=== PATIENT | male | born 1955 | race Caucasian/White ===

== ENCOUNTER 2017-09-28 08:12 | Day surgery (SDC) | payer MEDICARE ==
[~2017-09-28] VITALS: Ht 188 cm; Wt 90.3 kg
[~2017-09-28 08:12] MED LIST: ALBU3IS INH; ALBU90OI6 INH; BENADRYL25 MG PO; BUPR150ER PO; BUSP15 PO; BUTRANS1 EAC1 TD; Bupropion Xl150 MG PO; CLON1 PO; CYCL10 PO; DEXA1; DICLOFENAC SOD100 G1; DICLOFENAC SOD100 G1 TOP; Depo-Testos200 MG/ML IM; ERYT.5TO BOTHEYES; FAMVIR GT; FEXPSEER PO; HYDMOR2 PO; HYDROCODON-ACE1 EAC3 PO; Hydrocodone-Ap1 EA23 PO; KETO10 PO; LIDO5TP TOP; LOPE2C PO; MECL25 PO; MONT10T PO; NEFA50 PO; ONDA4ODT; Omeprazole20 M1 PO; PROLIA60 MG/1 ML SC; PROM25 PO; QVAR7.3 G1 IH; Sudogest60 MG PO; TRAZ100 PO; Ventolin Soln3 ML INH
[2017-09-28] MEDS ORDERED: DULERA 100 MCG/13 GM (08:55)
[2018-09-06] MEDS ORDERED: TIZANIDINE HCL2 MG PO (18:57)
[2018-09-06] MEDS ORDERED: ALENDRONATE (18:59)
[2018-09-09] MEDS ORDERED: CIPR500 PO (03:49)
[2018-09-09] MEDS ORDERED: Bactrim Ds Tab1 EACH PO (05:51)
== END 2017-09-28 14:43 | disposition home or self-care (01) ==
LOC: ORSCSDS 08:12
PROVIDERS: Urology
PROC: 0V508ZZ Destruction of Prostate, Via Natural or Artificial Opening Endoscopic (ICD-10-PCS; principal; 2017-09-28 09:45)
DX: N40.1 Benign prostatic hyperplasia with lower urinary tract symptoms (principal); R33.9 Retention of urine, unspecified; E78.00 Pure hypercholesterolemia, unspecified; J45.909 Unspecified asthma, uncomplicated; F41.8 Other specified anxiety disorders; Z79.899 Other long term (current) drug therapy
CPT/HCPCS: J0744; J2250; J3010; J7120

== ENCOUNTER → 2018-03-02 | Outpatient (CLI) | payer MEDICARE ==
[~2018-03-02] MED LIST changes: +DULERA 100 MCG/13 GM
== END | disposition home or self-care (01) ==
LOC: LAB 15:30 → LAB SHORT 15:30
DX: R30.0 Dysuria (principal)
CPT/HCPCS: 87086

== ENCOUNTER 2018-03-21 17:23 | Observation (INO) | payer MEDICARE ==
[~2018-03-21] VITALS: Ht 188 cm; Wt 93.0 kg
[2018-03-21 18:31] LABS: Source, Urine Clean Catch
[2018-03-21 18:33] LABS: Bilirubin, Urine Neg (Neg); Blood, Urine 1+ (Neg); Glucose Qualitative, Urine Neg (Neg); Ketones, Urine Neg (Neg); Leukocyte Esterase, Urine 2+ (Neg); Nitrite, Urine Neg (Neg); Protein, Urine Neg (Neg); Urobilinogen, Urine NORM (Normal); pH, Urine 6.5 (5.0-8.0)
[2018-03-21 18:45] LABS: Appearance, Urine Clear (Clear); Color, Urine Yellow (P-Yellow)
[2018-03-21 18:46] LABS: Bacteria Not Seen /hpf; Red Blood Cells, Urine 0-2 /hpf (0-2); Squamous Epithelial Cells Not Seen /hpf (Few)
[2018-03-21 18:53] LABS: U Amphetamine Screen Not Detected; U Barbituate Screen Not Detected; U Benzodiazapine Screen Not Detected; U Buprenorphine Screen Not Detected; U Cannabinoids Screen Not Detected; U Cocaine Screen Not Detected; U Methadone Screen Not Detected; U Methamphetamine Screen Not Detected; U Opiates Screen Not Detected; U Oxycodone Screen Not Detected; U Phencyclidine Screen Not Detected; U Propoxyphene Screen Not Detected
[2018-03-21 18:57] LABS: BASOPHILS ABSOLUTE AUTO 0.04 K/mm3 (0.00-0.23); BASOPHILS PERCENT AUTO 0 % (0-2); EOSINOPHILS ABSOLUTE AUTO 0.05 K/mm3 (0.00-0.68); EOSINOPHILS PERCENT AUTO 0 % (0-6); Hemoglobin 15.6 g/dL (13.5-17.5); IMMATURE GRAN ABSOLUTE AUTO 0.03 K/mm3 (0.00-0.10); IMMATURE GRAN PERCENT AUTO 0 % (0-1); LYMPHOCYTES ABSOLUTE AUTO 1.47 K/mm3 (0.84-5.20); LYMPHOCYTES PERCENT AUTO 13 % (21-46); MONOCYTES ABSOLUTE AUTO 0.88 K/mm3 (0.16-1.47); MONOCYTES PERCENT AUTO 8 % (4-13); Mean Corpuscular HGB Conc 33.9 g/dL (31.5-36.5); Mean Corpuscular Volume 91 fL (80-100); Mean Platelet Volume 9.1 fL (9.1-12.4); NEUTROPHILS ABSOLUTE AUTO 8.98 K/mm3 (1.96-9.15); NEUTROPHILS PERCENT AUTO 79 % (41-73); Platelet Count 201 K/mm3 (150-400); RDW Coefficient Variation 13.3 % (11.7-14.2); RDW Standard Deviation 45.1 fL (35.1-46.3); Red Blood Cell Count 5.04 M/mm3 (4.30-5.90); White Blood Cell Count 11.45 K/mm3 (4.00-11.30)
[2018-03-21 19:19] LABS: Alanine Aminotransfer (ALT/SGP 53 U/L (12-78); Albumin, Blood 4.4 g/dL (3.4-5.0); Albumin/Globulin Ratio 1.4 (0.8-1.8); Alk Phos 55 U/L (50-136); Anion Gap 7 mmol/L (6-16); Aspartate Aminotrans (AST/SGOT 29 U/L (12-37); Blood Urea Nitrogen 20 mg/dL (8-24); Bun/Creatinine Ratio 17.5 (12.0-20.0); CO2, Blood 28 mmol/L (21-32); Calcium, Blood 9.5 mg/dL (8.5-10.1); Chloride, Blood 103 mmol/L (98-108); Creatinine, Blood 1.14 mg/dL (0.60-1.20); Ethanol (Alcohol), Blood, Med <3 mg/dL; Globulin, Blood 3.1 g/dL (2.2-4.0); Glomerular Filtration Rate >60 (60-); Glucose, Blood 96 mg/dL (70-99); Potassium, Blood 4.1 mmol/L (3.5-5.5); Sodium, Blood 138 mmol/L (136-145); Total Protein, Blood 7.5 g/dL (6.4-8.2)
[2018-03-21 19:31] LABS: Acetaminophen, Random <2.0 ug/mL (10.0-30.0); Salicylate <1.7 mg/dL (2.8-20.0)
[2018-03-21] MEDS ORDERED: BUDE6HFA INH (20:18)
[2018-03-21] MEDS ORDERED: HYDR1TAB94 PO (20:18)
[2018-03-21] MEDS ORDERED: Flonase 0.05% N16 GM (20:19)
[2018-03-21] MEDS ORDERED: MONT10T PO (20:19)
[2018-03-21] MEDS ORDERED: Voltaren100 GM TOP (20:20)
[2018-03-21] MEDS ORDERED: RESPICLICK INH (20:21)
[2018-03-21] MEDS ORDERED: Hair, Skin & N1 EACH PO (20:21)
[2018-03-21] MEDS ORDERED: FISH OIL + D31 EACH PO (20:21)
[2018-03-21] MEDS ORDERED: CINNAMON PLUS1 EACH PO (20:21)
[2018-03-21] MEDS ORDERED: LUTEIN20 MG PO (20:22)
[2018-03-21] MEDS ORDERED: VINPOCETINE1 GM BC (20:22)
[2018-03-21] MEDS ORDERED: UBID10 PO (20:23)
[2018-03-21] MEDS ORDERED: Calcium Citrat200 MG PO (20:23)
[2018-03-21] MEDS ORDERED: MEGANATURAL-BP150 MG PO (20:23)
[2018-03-21] MEDS ORDERED: Beta Carot10000 UNIT PO (20:24)
[2018-03-22] MEDS ORDERED: DULERA 200 MCG/13 GM INH (05:02)
== END 2018-03-22 13:19 | disposition home or self-care (01) ==
LOC: ER 17:23 → EOR 17:24
PROVIDERS: Emergency Medicine
DX: R45.851 Suicidal ideations (principal); F32.9 Major depressive disorder, single episode, unspecified; J45.909 Unspecified asthma, uncomplicated; M85.80 Other specified disorders of bone density and structure, unspecified site; G89.29 Other chronic pain; Z88.5 Allergy status to narcotic agent; Z88.8 Allergy status to other drugs, medicaments and biological substances; Z79.899 Other long term (current) drug therapy
CPT/HCPCS: 36415; 80053; 81001; 84443; 85025; 87086; 94640; 94760; 99285; G0378; G0480; Q3014

== ENCOUNTER 2018-05-08 17:07 | Emergency (ER) | payer MEDICARE ==
[~2018-05-08] VITALS: Ht 188 cm; Wt 93.0 kg
[~2018-05-08 17:07] MED LIST changes: +BUDE6HFA INH; +Beta Carot10000 UNIT PO; +CINNAMON PLUS1 EACH PO; +Calcium Citrat200 MG PO; +DULERA 200 MCG/13 GM INH; +FISH OIL + D31 EACH PO; +Flonase 0.05% N16 GM; +HYDR1TAB94 PO; +Hair, Skin & N1 EACH PO; +LUTEIN20 MG PO; +MEGANATURAL-BP150 MG PO; +RESPICLICK INH; +UBID10 PO; +VINPOCETINE1 GM BC; +Voltaren100 GM TOP
[2018-05-08] MEDS ORDERED: Ranitidine HCl150 M1 PO (17:30)
[2018-05-08 17:42] LABS: BASOPHILS ABSOLUTE AUTO 0.04 K/mm3 (0.00-0.23); BASOPHILS PERCENT AUTO 1 % (0-2); EOSINOPHILS ABSOLUTE AUTO 0.05 K/mm3 (0.00-0.68); EOSINOPHILS PERCENT AUTO 1 % (0-6); Hematocrit 46.9 % (37.0-53.0); Hemoglobin 15.8 g/dL (13.5-17.5); IMMATURE GRAN ABSOLUTE AUTO 0.02 K/mm3 (0.00-0.10); IMMATURE GRAN PERCENT AUTO 0 % (0-1); LYMPHOCYTES ABSOLUTE AUTO 1.61 K/mm3 (0.84-5.20); LYMPHOCYTES PERCENT AUTO 21 % (21-46); MONOCYTES ABSOLUTE AUTO 0.72 K/mm3 (0.16-1.47); MONOCYTES PERCENT AUTO 9 % (4-13); Mean Corpuscular HGB Conc 33.7 g/dL (31.5-36.5); Mean Corpuscular Volume 89 fL (80-100); Mean Platelet Volume 9.3 fL (9.1-12.4); NEUTROPHILS ABSOLUTE AUTO 5.38 K/mm3 (1.96-9.15); NEUTROPHILS PERCENT AUTO 69 % (41-73); Platelet Count 211 K/mm3 (150-400); RDW Standard Deviation 42.5 fL (35.1-46.3); Red Blood Cell Count 5.27 M/mm3 (4.30-5.90); White Blood Cell Count 7.82 K/mm3 (4.00-11.30)
[2018-05-08 17:50] LABS: Source, Urine Clean Catch
[2018-05-08 17:54] LABS: Bilirubin, Urine Neg (Neg); Blood, Urine 2+ (Neg); Glucose Qualitative, Urine Neg (Neg); Ketones, Urine Neg (Neg); Leukocyte Esterase, Urine 2+ (Neg); Nitrite, Urine Neg (Neg); Protein, Urine Neg (Neg); Urobilinogen, Urine NORM (Normal)
[2018-05-08 18:11] LABS: Alanine Aminotransfer (ALT/SGP 45 U/L (12-78); Albumin, Blood 4.3 g/dL (3.4-5.0); Albumin/Globulin Ratio 1.3 (0.8-1.8); Alk Phos 59 U/L (50-136); Anion Gap 9 mmol/L (6-16); Aspartate Aminotrans (AST/SGOT 28 U/L (12-37); Bilirubin, Total 0.5 mg/dL (0.1-1.0); Blood Urea Nitrogen 24 mg/dL (8-24); Bun/Creatinine Ratio 19.7 (12.0-20.0); CO2, Blood 23 mmol/L (21-32); Calcium, Blood 9.2 mg/dL (8.5-10.1); Chloride, Blood 106 mmol/L (98-108); Creatinine, Blood 1.22 mg/dL (0.60-1.20); Globulin, Blood 3.3 g/dL (2.2-4.0); Glomerular Filtration Rate >60 (60-); Glucose, Blood 95 mg/dL (70-99); Potassium, Blood 4.1 mmol/L (3.5-5.5); Sodium, Blood 138 mmol/L (136-145); Total Protein, Blood 7.6 g/dL (6.4-8.2)
[2018-05-08 18:13] LABS: Appearance, Urine Hazy (Clear); Color, Urine Yellow (P-Yellow)
[2018-05-08 18:14] LABS: Bacteria Few /hpf; Squamous Epithelial Cells Few /hpf (Few)
== END 2018-05-08 19:26 | disposition home or self-care (01) ==
LOC: ER 17:07
PROVIDERS: Emergency Medicine
DX: R10.9 Unspecified abdominal pain (principal); J45.909 Unspecified asthma, uncomplicated; Z79.899 Other long term (current) drug therapy
CPT/HCPCS: 36415; 74176; 80053; 81001; 85025; 87086; 96374; 99284-25; J1885

== ENCOUNTER 2019-03-18 14:41 | Emergency (ER) | payer MEDICARE ==
[~2019-03-18] VITALS: Ht 188 cm; Wt 89.8 kg
[~2019-03-18 14:41] MED LIST changes: +ALENDRONATE; +Bactrim Ds Tab1 EACH PO; +CIPR500 PO; +Ranitidine HCl150 M1 PO; +TIZANIDINE HCL2 MG PO
[2019-03-18] MEDS ORDERED: Robaxin-750750 MG PO (16:23)
[2019-03-18] MEDS ORDERED: KETO10 PO (16:23)
== END 2019-03-18 16:34 | disposition home or self-care (01) ==
LOC: ER 14:41
DX: M62.838 Other muscle spasm (principal); Z88.8 Allergy status to other drugs, medicaments and biological substances; Z88.5 Allergy status to narcotic agent; Z79.899 Other long term (current) drug therapy; J45.909 Unspecified asthma, uncomplicated
CPT/HCPCS: 96372; 99283-25; J1885

== ENCOUNTER 2019-12-17 10:59 | Day surgery (SDC) | payer MEDICARE ==
[~2019-12-17] VITALS: Ht 188 cm; Wt 87.4 kg
[~2019-12-17 10:59] MED LIST changes: +Advair Hfa 115-12 GM INH; +BENZ100A PO; +Cleocin T60 ML TD; +FAMO20 PO; +LIDOCAINE5 GM TD; +MORP15ER PO; +Promethazine HC25 M1 PO; +Robaxin-750750 MG PO
--- NOTE | 2019-12-17 13:42 | NUR ---
12/17/19 1342 Armond Rodríguez History, Chart, Medications and Allergies reviewed before start of procedure. Patient confirms NPO status and agrees with scheduled surgery. PATIENT DETERMINED TO BE ASA APPROPRIATE FOR PROPOFOL SEDATION PRIOR TO START OF PROCEDURE BY DR. FULLER. 3-LEAD EKG REVIEWED WITH PHYSICIAN PRIOR TO START OF PROCEDURE. MONITOR INTACT WITH CONTINUOUS PULSE OXIMETRY AND INTERMITTENT BP. CAPSULE NOT COMMUNICATING AND BIOMED CALLED TO FIX.
--- NOTE | 2019-12-17 15:42 | NUR ---
Patient up to Ambulate independently. Gait steady. Discharge instructions reviewed with patient. Patient verbalizes understanding. Copy given to patient to take home. Patient States Post-Procedure ride home has been arranged. Discharged via wheelchair to private car for ride home. ALL BELONINGS RETURNED TO PATIENT. PT WATING OUTSIDE TO PROVIDED RIDE HOME.
== END 2019-12-17 22:50 | disposition home or self-care (01) ==
LOC: ORSCMMR 10:59 → ORD 13:00 → ORSCMMR 13:00
PROVIDERS: Student in an Organized Health Care Education/Training Program
PROC: 0DB68ZX Excision of Stomach, Via Natural or Artificial Opening Endoscopic, Diagnostic (ICD-10-PCS; principal; 2019-12-17 13:00)
PROC: 0DB98ZX Excision of Duodenum, Via Natural or Artificial Opening Endoscopic, Diagnostic (ICD-10-PCS; principal; 2019-12-17 13:00)
PROC: 0DBK8ZX Excision of Ascending Colon, Via Natural or Artificial Opening Endoscopic, Diagnostic (ICD-10-PCS; principal; 2019-12-17 13:00)
PROC: 0DBN8ZX Excision of Sigmoid Colon, Via Natural or Artificial Opening Endoscopic, Diagnostic (ICD-10-PCS; principal; 2019-12-17 13:00)
PROC: 0DB48ZX Excision of Esophagogastric Junction, Via Natural or Artificial Opening Endoscopic, Diagnostic (ICD-10-PCS; principal; 2019-12-17 13:00)
DX: R11.0 Nausea (principal); K29.70 Gastritis, unspecified, without bleeding; K21.9 Gastro-esophageal reflux disease without esophagitis; Z12.11 Encounter for screening for malignant neoplasm of colon; K29.80 Duodenitis without bleeding; D12.2 Benign neoplasm of ascending colon; K63.5 Polyp of colon; K64.8 Other hemorrhoids; Z80.0 Family history of malignant neoplasm of digestive organs; J45.909 Unspecified asthma, uncomplicated; F41.8 Other specified anxiety disorders; Z79.899 Other long term (current) drug therapy
CPT/HCPCS: 88305; 88342; J2405; J2704; J7120

== ENCOUNTER 2020-07-31 09:14 | Emergency (ER) | payer MEDICARE ==
[~2020-07-31] VITALS: Ht 188 cm; Wt 89.4 kg
[2020-07-31 09:50] LABS: BASOPHILS ABSOLUTE AUTO 0.03 K/mm3 (0.00-0.23); BASOPHILS PERCENT AUTO 1 % (0-2); EOSINOPHILS PERCENT AUTO 2 % (0-6); Hematocrit 47.4 % (37.0-53.0); Hemoglobin 15.6 g/dL (13.5-17.5); IMMATURE GRAN ABSOLUTE AUTO 0.02 K/mm3 (0.00-0.10); IMMATURE GRAN PERCENT AUTO 0 % (0-1); LYMPHOCYTES PERCENT AUTO 22 % (21-46); MONOCYTES ABSOLUTE AUTO 0.65 K/mm3 (0.16-1.47); MONOCYTES PERCENT AUTO 10 % (4-13); Mean Corpuscular HGB 29.9 pg (26.0-34.0); Mean Corpuscular HGB Conc 32.9 g/dL (31.5-36.5); Mean Corpuscular Volume 91 fL (80-100); Mean Platelet Volume 9.5 fL (9.1-12.4); NEUTROPHILS ABSOLUTE AUTO 4.18 K/mm3 (1.96-9.15); NEUTROPHILS PERCENT AUTO 66 % (41-73); Platelet Count 186 K/mm3 (150-400); RDW Coefficient Variation 13.5 % (11.7-14.2); RDW Standard Deviation 45.8 fL (35.1-46.3); Red Blood Cell Count 5.22 M/mm3 (4.30-5.90); White Blood Cell Count 6.38 K/mm3 (4.00-11.30)
[2020-07-31] MEDS ORDERED: ALPR.25 PO (09:57)
[2020-07-31] MEDS ORDERED: Robaxin750 MG PO (10:01)
[2020-07-31] MEDS ORDERED: TOLT2 PO (10:03)
[2020-07-31] MEDS ORDERED: OMEP20ER PO (10:04)
[2020-07-31] MEDS ORDERED: HYDHCL25 PO (10:05)
[2020-07-31 10:10] LABS: Troponin I <0.015 ng/mL (0.000-0.040)
[2020-07-31 10:11] LABS: Alanine Aminotransfer (ALT/SGP 57 U/L (12-78); Albumin, Blood 3.7 g/dL (3.4-5.0); Albumin/Globulin Ratio 1.2 (0.8-1.8); Alk Phos 55 U/L (50-136); Anion Gap 4 mmol/L (6-16); Aspartate Aminotrans (AST/SGOT 29 U/L (12-37); Bilirubin, Total 0.6 mg/dL (0.1-1.0); Blood Urea Nitrogen 20 mg/dL (8-24); Bun/Creatinine Ratio 19.8 (12.0-20.0); CO2, Blood 26 mmol/L (21-32); Calcium, Blood 8.3 mg/dL (8.5-10.1); Chloride, Blood 111 mmol/L (98-108); Creatinine, Blood 1.01 mg/dL (0.60-1.20); Glomerular Filtration Rate >60 (60-); Glucose, Blood 91 mg/dL (70-99); Sodium, Blood 141 mmol/L (136-145); Total Protein, Blood 6.7 g/dL (6.4-8.2)
== END 2020-07-31 11:00 | disposition home or self-care (01) ==
LOC: ER 09:14
PROVIDERS: Emergency Medicine
DX: R07.89 Other chest pain (principal); R10.13 Epigastric pain; R06.02 Shortness of breath; J45.909 Unspecified asthma, uncomplicated; Z79.899 Other long term (current) drug therapy; Z88.5 Allergy status to narcotic agent; Z88.3 Allergy status to other anti-infective agents; Z88.8 Allergy status to other drugs, medicaments and biological substances
CPT/HCPCS: 36415; 71046; 80053; 84484; 85025; 93005; 93010; 99285-25

== ENCOUNTER 2020-09-04 20:18 | Emergency (ER) | payer MEDICARE ==
[~2020-09-04] VITALS: Ht 188 cm; Wt 90.7 kg
[~2020-09-04 20:18] MED LIST changes: +ALPR.25 PO; +HYDHCL25 PO; +OMEP20ER PO; +Robaxin750 MG PO; +TOLT2 PO
[2020-09-04 21:05] LABS: BASOPHILS ABSOLUTE AUTO 0.04 K/mm3 (0.00-0.23); BASOPHILS PERCENT AUTO 1 % (0-2); EOSINOPHILS ABSOLUTE AUTO 0.08 K/mm3 (0.00-0.68); EOSINOPHILS PERCENT AUTO 1 % (0-6); Hematocrit 53.9 % (37.0-53.0); Hemoglobin 17.7 g/dL (13.5-17.5); IMMATURE GRAN ABSOLUTE AUTO 0.04 K/mm3 (0.00-0.10); IMMATURE GRAN PERCENT AUTO 1 % (0-1); LYMPHOCYTES ABSOLUTE AUTO 1.43 K/mm3 (0.84-5.20); LYMPHOCYTES PERCENT AUTO 17 % (21-46); MONOCYTES ABSOLUTE AUTO 0.74 K/mm3 (0.16-1.47); MONOCYTES PERCENT AUTO 9 % (4-13); Mean Corpuscular HGB 29.8 pg (26.0-34.0); Mean Corpuscular HGB Conc 32.8 g/dL (31.5-36.5); Mean Corpuscular Volume 91 fL (80-100); Mean Platelet Volume 9.5 fL (9.1-12.4); NEUTROPHILS ABSOLUTE AUTO 5.93 K/mm3 (1.96-9.15); NEUTROPHILS PERCENT AUTO 72 % (41-73); Platelet Count 215 K/mm3 (150-400); RDW Coefficient Variation 13.5 % (11.7-14.2); RDW Standard Deviation 45.3 fL (35.1-46.3); Red Blood Cell Count 5.94 M/mm3 (4.30-5.90); White Blood Cell Count 8.26 K/mm3 (4.00-11.30)
[2020-09-04 21:29] LABS: Alanine Aminotransfer (ALT/SGP 69 U/L (12-78); Albumin, Blood 4.3 g/dL (3.4-5.0); Albumin/Globulin Ratio 1.2 (0.8-1.8); Alk Phos 74 U/L (50-136); Anion Gap 3 mmol/L (6-16); Aspartate Aminotrans (AST/SGOT 32 U/L (12-37); Bilirubin, Total 0.5 mg/dL (0.1-1.0); Blood Urea Nitrogen 21 mg/dL (8-24); Bun/Creatinine Ratio 18.1 (12.0-20.0); CO2, Blood 27 mmol/L (21-32); Calcium, Blood 9.3 mg/dL (8.5-10.1); Chloride, Blood 109 mmol/L (98-108); Creatinine, Blood 1.16 mg/dL (0.60-1.20); Ethanol (Alcohol), Blood, Med <3 mg/dL; Globulin, Blood 3.7 g/dL (2.2-4.0); Glomerular Filtration Rate >60 (60-); Glucose, Blood 86 mg/dL (70-99); Salicylate <1.7 mg/dL (2.8-20.0); Sodium, Blood 139 mmol/L (136-145)
[2020-09-04 21:38] LABS: Acetaminophen, Random <2.0 ug/mL (10.0-30.0)
[2020-09-04 22:10] LABS: Source, Urine Clean Catch
[2020-09-04 22:12] LABS: Bilirubin, Urine Neg (Neg); Blood, Urine 1+ (Neg); Glucose Qualitative, Urine Neg (Neg); Ketones, Urine Neg (Neg); Leukocyte Esterase, Urine Neg (Neg); Nitrite, Urine Neg (Neg); Protein, Urine Neg (Neg); Specific Gravity, Urine 1.025 (1.003-1.022); Urobilinogen, Urine NORM (Normal)
[2020-09-04 22:15] LABS: Appearance, Urine Clear (Clear); Color, Urine Yellow (P-Yellow)
[2020-09-04 22:28] LABS: Bacteria Not Seen /hpf; Red Blood Cells, Urine Rare /hpf (0-2); Squamous Epithelial Cells Not Seen /hpf (Few); White Blood Cells, Urine Rare /hpf (0-5)
[2020-09-04 22:41] LABS: U Amphetamine Screen Not Detected; U Barbituate Screen Not Detected; U Benzodiazapine Screen Not Detected; U Buprenorphine Screen Not Detected; U Cannabinoids Screen Not Detected; U Cocaine Screen Not Detected; U Methadone Screen Not Detected; U Methamphetamine Screen Not Detected; U Opiates Screen DETECTED; U Oxycodone Screen Not Detected; U Phencyclidine Screen Not Detected; U Propoxyphene Screen Not Detected
== END 2020-09-05 00:05 | disposition home or self-care (01) ==
LOC: ER 20:18
PROVIDERS: Physician Assistant
DX: F43.10 Post-traumatic stress disorder, unspecified (principal); F41.9 Anxiety disorder, unspecified; J45.909 Unspecified asthma, uncomplicated; Z88.5 Allergy status to narcotic agent; Z79.899 Other long term (current) drug therapy
CPT/HCPCS: 80053; 81001; 85025; 96372; 99285-25; G0480; J1885; Q3014

== ENCOUNTER 2020-11-09 19:43 | Emergency (ER) | payer OTHER ==
[~2020-11-09] VITALS: Ht 188 cm; Wt 90.7 kg
[2020-11-09] MEDS ORDERED: FAMC250 PO (22:23)
== END 2020-11-09 23:58 | disposition home or self-care (01) ==
LOC: ER 19:43
DX: J45.901 Unspecified asthma with (acute) exacerbation (principal); Z88.5 Allergy status to narcotic agent; Z88.8 Allergy status to other drugs, medicaments and biological substances; Z88.3 Allergy status to other anti-infective agents; Z79.899 Other long term (current) drug therapy
CPT/HCPCS: 94640; 96374; 99283-25; A9270; J1100

== ENCOUNTER 2021-03-17 00:59 | Emergency (ER) | payer OTHER ==
[~2021-03-17] VITALS: Ht 188 cm; Wt 93.0 kg
[~2021-03-17 00:59] MED LIST changes: +FAMC250 PO
[2021-03-17 02:22] LABS: Hematocrit 48.6 % (37.0-53.0); Hemoglobin 16.4 g/dL (13.5-17.5); Mean Corpuscular HGB 29.9 pg (26.0-34.0); Mean Corpuscular HGB Conc 33.7 g/dL (31.5-36.5); Mean Corpuscular Volume 89 fL (80-100); Mean Platelet Volume 9.5 fL (9.1-12.4); Platelet Count 154 K/mm3 (150-400); RDW Coefficient Variation 13.3 % (11.7-14.2); RDW Standard Deviation 43.3 fL (35.1-46.3); Red Blood Cell Count 5.48 M/mm3 (4.30-5.90)
[2021-03-17 02:27] LABS: Alanine Aminotransfer (ALT/SGP 65 U/L (12-78); Albumin, Blood 3.4 g/dL (3.4-5.0); Albumin/Globulin Ratio 1.1 (0.8-1.8); Alk Phos 51 U/L (50-136); Anion Gap 8 mmol/L (6-16); Aspartate Aminotrans (AST/SGOT 28 U/L (12-37); Blood Urea Nitrogen 27 mg/dL (8-24); Bun/Creatinine Ratio 25.2 (12.0-20.0); CO2, Blood 20 mmol/L (21-32); CPK Creatine Kinase 114 U/L (39-308); Calcium, Blood 7.3 mg/dL (8.5-10.1); Chloride, Blood 109 mmol/L (98-108); Creatinine, Blood 1.07 mg/dL (0.60-1.20); Globulin, Blood 3.1 g/dL (2.2-4.0); Glomerular Filtration Rate >60 (60-); Glucose, Blood 114 mg/dL (70-99); Magnesium, Blood 1.8 mg/dL (1.6-2.4); Potassium, Blood 3.5 mmol/L (3.5-5.5); Sodium, Blood 137 mmol/L (136-145); Total Protein, Blood 6.5 g/dL (6.4-8.2); Troponin I <0.015 ng/mL (0.000-0.040)
[2021-03-17 02:48] LABS: BAND PERCENT MAN 5 % (0-8); BASOPHILS PERCENT MAN 0 % (0-2); EOSINOPHILS ABSOLUTE MAN 0.16 K/mm3 (0.00-0.68); EOSINOPHILS PERCENT MAN 3 % (0-6); LYMPHOCYTES ABSOLUTE MAN 0.28 K/mm3 (0.84-5.20); LYMPHOCYTES PERCENT MAN 5 % (21-46); MONOCYTES ABSOLUTE MAN 0.05 K/mm3 (0.16-1.47); MONOCYTES PERCENT MAN 1 % (4-13); NEUTROPHILS ABSOLUTE MAN 5.09 K/mm3 (1.96-9.15); SEG NEUTROPHILS PERCENT MAN 86 % (41-73); TOTAL CELLS COUNTED 100
== END 2021-03-17 05:35 | disposition home or self-care (01) ==
LOC: ER 00:59
PROVIDERS: Emergency Medicine
DX: E83.51 Hypocalcemia (principal); J45.909 Unspecified asthma, uncomplicated; Z88.5 Allergy status to narcotic agent; Z88.8 Allergy status to other drugs, medicaments and biological substances; Z79.899 Other long term (current) drug therapy
CPT/HCPCS: 36415; 70450; 71045; 80053; 82310; 82330; 82550; 83690; 83735; 84484; 85025; 93005; 93010; 96365; 96376; 99285-25; J0610; J7120

== ENCOUNTER 2021-03-30 17:31 | Emergency (ER) | payer OTHER ==
[~2021-03-30] VITALS: Ht 188 cm; Wt 93.9 kg
[2021-03-30 18:17] LABS: BASOPHILS ABSOLUTE AUTO 0.04 K/mm3 (0.00-0.23); BASOPHILS PERCENT AUTO 1 % (0-2); EOSINOPHILS ABSOLUTE AUTO 0.09 K/mm3 (0.00-0.68); EOSINOPHILS PERCENT AUTO 1 % (0-6); Hematocrit 46.6 % (37.0-53.0); Hemoglobin 15.9 g/dL (13.5-17.5); IMMATURE GRAN ABSOLUTE AUTO 0.08 K/mm3 (0.00-0.10); IMMATURE GRAN PERCENT AUTO 1 % (0-1); LYMPHOCYTES PERCENT AUTO 15 % (21-46); MONOCYTES ABSOLUTE AUTO 0.72 K/mm3 (0.16-1.47); MONOCYTES PERCENT AUTO 9 % (4-13); Mean Corpuscular HGB 30.3 pg (26.0-34.0); Mean Corpuscular HGB Conc 34.1 g/dL (31.5-36.5); Mean Corpuscular Volume 89 fL (80-100); Mean Platelet Volume 9.4 fL (9.1-12.4); NEUTROPHILS ABSOLUTE AUTO 6.19 K/mm3 (1.96-9.15); NEUTROPHILS PERCENT AUTO 73 % (41-73); Platelet Count 245 K/mm3 (150-400); RDW Coefficient Variation 13.2 % (11.7-14.2); RDW Standard Deviation 43.4 fL (35.1-46.3); Red Blood Cell Count 5.24 M/mm3 (4.30-5.90); White Blood Cell Count 8.42 K/mm3 (4.00-11.30)
[2021-03-30 18:46] LABS: Troponin I <0.015 ng/mL (0.000-0.040)
[2021-03-30 18:50] LABS: Alanine Aminotransfer (ALT/SGP 71 U/L (12-78); Albumin/Globulin Ratio 1.1 (0.8-1.8); Alk Phos 70 U/L (50-136); Anion Gap 4 mmol/L (6-16); Aspartate Aminotrans (AST/SGOT 31 U/L (12-37); Bilirubin, Total 0.3 mg/dL (0.1-1.0); Blood Urea Nitrogen 26 mg/dL (8-24); Bun/Creatinine Ratio 24.8 (12.0-20.0); CO2, Blood 26 mmol/L (21-32); Calcium, Blood 9.1 mg/dL (8.5-10.1); Chloride, Blood 110 mmol/L (98-108); Creatinine, Blood 1.05 mg/dL (0.60-1.20); Globulin, Blood 3.5 g/dL (2.2-4.0); Glomerular Filtration Rate >60 (60-); Glucose, Blood 93 mg/dL (70-99); Sodium, Blood 140 mmol/L (136-145); Total Protein, Blood 7.5 g/dL (6.4-8.2)
[2021-03-30] MEDS ORDERED: BACL10 PO (19:58)
[2021-03-30] MEDS ORDERED: FLUT1DIS5 INH (19:58)
[2021-03-30] MEDS ORDERED: CALCIUM CIT 311 EACH PO (20:01)
== END 2021-03-30 20:44 | disposition home or self-care (01) ==
LOC: ER 17:31
PROVIDERS: Physician Assistant
DX: R00.2 Palpitations (principal); Z88.5 Allergy status to narcotic agent; Z88.8 Allergy status to other drugs, medicaments and biological substances; Z79.899 Other long term (current) drug therapy
CPT/HCPCS: 36415; 71046; 80053; 84484; 85025; 93005; 93010; 99284-25

== ENCOUNTER 2021-05-19 02:48 | Inpatient (IN) | payer MEDICARE, OTHER ==
[~2021-05-19] VITALS: Ht 182.9 cm; Wt 94.7 kg
[~2021-05-19 02:48] MED LIST changes: +BACL10 PO; +CALCIUM CIT 311 EACH PO; +DEPO-TESTO200 MG/1 M IM; -Depo-Testos200 MG/ML IM; +FLUT1DIS5 INH
[2021-05-19 03:45] LABS: BASOPHILS ABSOLUTE AUTO 0.03 K/mm3 (0.00-0.23); BASOPHILS PERCENT AUTO 0 % (0-2); EOSINOPHILS ABSOLUTE AUTO 0.12 K/mm3 (0.00-0.68); EOSINOPHILS PERCENT AUTO 2 % (0-6); Hematocrit 44.5 % (37.0-53.0); IMMATURE GRAN ABSOLUTE AUTO 0.03 K/mm3 (0.00-0.10); IMMATURE GRAN PERCENT AUTO 0 % (0-1); LYMPHOCYTES ABSOLUTE AUTO 1.09 K/mm3 (0.84-5.20); LYMPHOCYTES PERCENT AUTO 14 % (21-46); MONOCYTES ABSOLUTE AUTO 0.55 K/mm3 (0.16-1.47); MONOCYTES PERCENT AUTO 7 % (4-13); Mean Corpuscular HGB 30.2 pg (26.0-34.0); Mean Corpuscular HGB Conc 33.7 g/dL (31.5-36.5); Mean Corpuscular Volume 90 fL (80-100); Mean Platelet Volume 9.6 fL (9.1-12.4); NEUTROPHILS ABSOLUTE AUTO 6.17 K/mm3 (1.96-9.15); NEUTROPHILS PERCENT AUTO 77 % (41-73); Platelet Count 151 K/mm3 (150-400); RDW Coefficient Variation 13.6 % (11.7-14.2); RDW Standard Deviation 44.8 fL (35.1-46.3); Red Blood Cell Count 4.96 M/mm3 (4.30-5.90); White Blood Cell Count 7.99 K/mm3 (4.00-11.30)
[2021-05-19 04:08] LABS: Alanine Aminotransfer (ALT/SGP 70 U/L (12-78); Albumin, Blood 3.6 g/dL (3.4-5.0); Albumin/Globulin Ratio 1.1 (0.8-1.8); Alk Phos 67 U/L (50-136); Anion Gap 4 mmol/L (6-16); Aspartate Aminotrans (AST/SGOT 60 U/L (12-37); Bilirubin, Total 0.3 mg/dL (0.1-1.0); Blood Urea Nitrogen 31 mg/dL (8-24); Bun/Creatinine Ratio 32.4 (12.0-20.0); CO2, Blood 24 mmol/L (21-32); Calcium, Blood 8.3 mg/dL (8.5-10.1); Chloride, Blood 108 mmol/L (98-108); Creatinine, Blood 0.96 mg/dL (0.60-1.20); Globulin, Blood 3.3 g/dL (2.2-4.0); Glomerular Filtration Rate >60 (60-); Glucose, Blood 158 mg/dL (70-99); Potassium, Blood 5.5 mmol/L (3.5-5.5); Sodium, Blood 136 mmol/L (136-145); Total Protein, Blood 6.9 g/dL (6.4-8.2)
[2021-05-19 04:41] LABS: PCO2 Arterial 46.5 mmHg (35-45); PO2 Arterial 80.8 mmHg (80-100); pH Blood Arterial 7.33 (7.35-7.45)
[2021-05-19 05:27] LABS: SARS-Cov-2 (COVID-19) PCR, MMC NEGATIVE (NEGATIVE)
[2021-05-19] MEDS ORDERED: Acetaminophen650 M1 PO (07:37)
[2021-05-19] MEDS ORDERED: Calcium Carbon500 MG PO (07:38)
[2021-05-19] MEDS ORDERED: Aspir 8181 MG PO (07:38)
[2021-05-19] MEDS ORDERED: PHARBEDRYL PO (07:40)
[2021-05-19] MEDS ORDERED: ALLEGRA ALLERG180 MG PO (07:41)
[2021-05-19] MEDS ORDERED: ZADITOR5 M1 BOTHEYES (07:42)
[2021-05-19 08:03] LABS: BASOPHILS ABSOLUTE AUTO 0.03 K/mm3 (0.00-0.23); BASOPHILS PERCENT AUTO 0 % (0-2); EOSINOPHILS ABSOLUTE AUTO 0.03 K/mm3 (0.00-0.68); EOSINOPHILS PERCENT AUTO 0 % (0-6); Hematocrit 44.7 % (37.0-53.0); Hemoglobin 14.9 g/dL (13.5-17.5); IMMATURE GRAN ABSOLUTE AUTO 0.04 K/mm3 (0.00-0.10); IMMATURE GRAN PERCENT AUTO 1 % (0-1); LYMPHOCYTES ABSOLUTE AUTO 0.81 K/mm3 (0.84-5.20); LYMPHOCYTES PERCENT AUTO 11 % (21-46); MONOCYTES ABSOLUTE AUTO 0.36 K/mm3 (0.16-1.47); MONOCYTES PERCENT AUTO 5 % (4-13); Mean Corpuscular HGB 30.2 pg (26.0-34.0); Mean Corpuscular HGB Conc 33.3 g/dL (31.5-36.5); Mean Corpuscular Volume 91 fL (80-100); Mean Platelet Volume 9.6 fL (9.1-12.4); NEUTROPHILS ABSOLUTE AUTO 6.29 K/mm3 (1.96-9.15); NEUTROPHILS PERCENT AUTO 83 % (41-73); Platelet Count 181 K/mm3 (150-400); RDW Coefficient Variation 13.7 % (11.7-14.2); RDW Standard Deviation 45.6 fL (35.1-46.3); Red Blood Cell Count 4.94 M/mm3 (4.30-5.90); White Blood Cell Count 7.56 K/mm3 (4.00-11.30)
[2021-05-19 08:22] LABS: International Normalized Ratio 1.01; Prothrombin Time Results 10.9 Sec (9.7-11.5)
[2021-05-19 08:35] LABS: Anion Gap 6 mmol/L (6-16); Blood Urea Nitrogen 27 mg/dL (8-24); Bun/Creatinine Ratio 25.7 (12.0-20.0); CO2, Blood 24 mmol/L (21-32); CPK Creatine Kinase 386 U/L (39-308); Calcium, Blood 8.3 mg/dL (8.5-10.1); Chloride, Blood 107 mmol/L (98-108); Creatinine, Blood 1.05 mg/dL (0.60-1.20); Glomerular Filtration Rate >60 (60-); Glucose, Blood 125 mg/dL (70-99); Potassium, Blood 4.3 mmol/L (3.5-5.5); Sodium, Blood 137 mmol/L (136-145)
--- NOTE | 2021-05-19 09:58 | NUR ---
Echocardiogram completed.
[2021-05-19 12:41] LABS: Creatine Kinase MB 24.9 ng/mL (0.0-3.6); Creatine Kinase MB Index 6.5 (0.0-4.0)
[2021-05-19 16:28] LABS: Troponin I 33.9 ng/mL (0.000-0.040)
--- NOTE | 2021-05-19 17:04 | NUR ---
SHIFT SUMMARY PT TO ROOM AT 0700 FROM [facility], RECIEVED BEDSIDE REPORT FOR RU DOWNEY. PT ORIENTED TO ROOM AND CALL LIGHT. EDUCATED ON ACTIVITY RESTRICTION AND LYING FLAT. PT EDUCATED ON FALL RISK AND USE OF CALL LIGHT. PT A&Ox4; CALM AND COOPERATIVE WITH CARE. PT RESTING IN BED ON BEDREST. REPORTS 3/10 CHEST TIGHTNESS, NOTIFED DR KIM, NEW ORDERS FOR IMDUR ENTERED. PT REPORTS SOB, REQUESTING NEB/ALBUTEROL; NOTIIFED DR KIM, NEW ORDERS ENTERED. PT DENIES NAUSEA, DIZZINESS AND LIGHTHEADEDNESS. RIGHT GROIN SITE; THIS AM BLEED NOTED AT SITE, PRESSURE HELD AND PRESSURE DRESSING PLACED PER DR MORROW AT BEDSIDE. ADDITIONAL BLOOD NOTED THIS AFTERNOON, PT BENDING KNEES, EDUCATED AGAIN ON ACTIVITY RESTRICTIONS, CLEANED AND CHANGES DRESSING AND REPLACED PRESSURE DRESSING. VSS. NO OTHER ACUTE CHANGES NOTED. WILL CONTINUE TO MONITOR UNTIL REPORT GIVEN TO ONCOMING RN.
--- NOTE | 2021-05-19 17:50 | NUR ---
REPORT GIVEN TO SHAYAN WERNER ASSUMING CARE OF PATIENT AT 1720.
[2021-05-20 00:16] LABS: Troponin I 27.6 ng/mL (0.000-0.040)
[2021-05-20 00:34] LABS: Creatine Kinase MB 113.1 ng/mL (0.0-3.6); Creatine Kinase MB Index 7.6 (0.0-4.0)
[2021-05-20 04:45] LABS: CHOL/HDL RATIO 3.2; Cholesterol 183 mg/dL (50-200); Creatinine, Blood 0.99 mg/dL (0.60-1.20); HDL Cholesterol 57 mg/dL (>39); LDL/HDL RATIO 1.8; Low Density Lipoprotein Chol 105 mg/dL (0-110); Triglycerides 105 mg/dL (30-160); Very Low Density Lipoprot Chol 21 mg/dL (6-32)
--- NOTE | 2021-05-20 05:27 | NUR ---
SOCIAL WORKER MASTERS SUMMARY PT'S R GROIN SITE HAS NO S/S OF ACTIVE BLEEDING THIS SHIFT AND IS PAINLESS UPON PALPATION PER THE PT. PT HAD CRACKLES IN BILATERAL BASES SO CLEAN OUT DRILLER WAS CALLED AND FLUIDS WERE DC'D AND 40 MG LASIX GIVEN X1. PT ATTEMPTED TO AMBULATE TO TOILET BUT REPORTED "CRUSHING CHEST PAIN" WHICH RESOLVED QUICKLY AFTER SITTING BACK IN BED. CLEAN OUT DRILLER NOTIFIED OF THIS AND PRN NITRO ORDERED. PT REPORTS DULL ACHE IN CHEST THAT REMAINS MOSTLY UNCHANGED FROM PREVIOUS SHIT BUT "MAY BE BETTER"THAN IT WAS PER THE PT. BP WNL AND STABLE THIS SHIFT. TELE SHOWING SR IN THE 80'S THIS SHIFT. O2 SATS >92% ON RM AIR. WILL REPORT TO ONCOMING RN.
[2021-05-20] MEDS ORDERED: DICL25ER PO (11:23)
[2021-05-20] MEDS ORDERED: ATOR40TA PO (15:30)
[2021-05-20] MEDS ORDERED: CARV3.125 PO (15:31)
[2021-05-20] MEDS ORDERED: Isosorbide Mono30 MG PO (15:31)
[2021-05-20] MEDS ORDERED: LISI5 PO (15:32)
[2021-05-20] MEDS ORDERED: NITR.4SL SL (15:33)
[2021-05-20] MEDS ORDERED: CLOP75 PO (15:34)
--- NOTE | 2021-05-20 16:41 | NUR ---
[facility]
== END 2021-05-20 16:12 | disposition home or self-care (01) | DRG 247 ==
LOC: ER 02:48 → SURS 03:32 → ERHOLD 03:32 → PCU 07:11 → SURS 17:02 → PCU 05-20 09:46 → SURS 05-20 09:51 → PCU 05-20 14:34 → SURS 05-20 14:35
PROVIDERS: Emergency Medicine; ADMIT Internal Medicine Cardiovascular Disease
PROC: 027135Z Dilation of Coronary Artery, Two Arteries with Two Drug-eluting Intraluminal Devices, Percutaneous Approach (ICD-10-PCS; principal; 2021-05-19)
PROC: 4A023N7 Measurement of Cardiac Sampling and Pressure, Left Heart, Percutaneous Approach (ICD-10-PCS; 2021-05-19)
PROC: B2111ZZ Fluoroscopy of Multiple Coronary Arteries using Low Osmolar Contrast (ICD-10-PCS; 2021-05-19)
DX: I21.19 ST elevation (STEMI) myocardial infarction involving other coronary artery of inferior wall (principal); Z20.822 Contact with and (suspected) exposure to COVID-19; J45.909 Unspecified asthma, uncomplicated; G89.29 Other chronic pain; H81.09 Meniere's disease, unspecified ear; E78.5 Hyperlipidemia, unspecified; F32.9 Major depressive disorder, single episode, unspecified; F41.9 Anxiety disorder, unspecified; K22.70 Barrett's esophagus without dysplasia; F51.04 Psychophysiologic insomnia; I25.119 Atherosclerotic heart disease of native coronary artery with unspecified angina pectoris; K21.9 Gastro-esophageal reflux disease without esophagitis; N40.0 Benign prostatic hyperplasia without lower urinary tract symptoms; M85.80 Other specified disorders of bone density and structure, unspecified site; Z88.8 Allergy status to other drugs, medicaments and biological substances; Z88.5 Allergy status to narcotic agent; Z79.899 Other long term (current) drug therapy; Z79.83 Long term (current) use of bisphosphonates; Z79.51 Long term (current) use of inhaled steroids; Z87.442 Personal history of urinary calculi; Z86.010 Personal history of colon polyps
CPT/HCPCS: 36415; 71045; 71046; 80048; 80053; 80061; 82550; 82553; 82565; 82803; 82947; 83880; 84484; 85025; 85347; 85610; 85730; 92921; 93005; 93010; 93454; 94640; 94760; 96374; 96375; 99152; 99153; 99285-25; A9270; C1725; C1760; C1769; C1874; C1887; C1894; C8929; C9600; C9606; J0690; J1200; J1644; J1940; J2250; J2270; J2405; J3010; J3246; J7030; J7050; Q9957; Q9967; U0004

== ENCOUNTER 2022-01-28 15:51 | Emergency (ER) | payer OTHER ==
[~2022-01-28] VITALS: Ht 188 cm; Wt 90.7 kg
[~2022-01-28 15:51] MED LIST changes: +ALFU10 PO; +ALLEGRA ALLERG180 MG PO; +ATOR40TA PO; +Acetaminophen650 M1 PO; +Aspir 8181 MG PO; +BUSP5 PO; +CARV3.125 PO; +CLOP75 PO; +Calcium Carbon500 MG PO; +DICL25ER PO; +Isosorbide Mono30 MG PO; +LISI5 PO; +NITR.4SL SL; +PHARBEDRYL PO; +ZADITOR5 M1 BOTHEYES
[2022-01-28 16:31] LABS: BASOPHILS ABSOLUTE AUTO 0.03 K/mm3 (0.00-0.23); BASOPHILS PERCENT AUTO 1 % (0-2); EOSINOPHILS ABSOLUTE AUTO 0.12 K/mm3 (0.00-0.68); EOSINOPHILS PERCENT AUTO 2 % (0-6); Hematocrit 45.1 % (37.0-53.0); Hemoglobin 15.2 g/dL (13.5-17.5); IMMATURE GRAN ABSOLUTE AUTO 0.03 K/mm3 (0.00-0.10); IMMATURE GRAN PERCENT AUTO 1 % (0-1); LYMPHOCYTES ABSOLUTE AUTO 1.03 K/mm3 (0.84-5.20); LYMPHOCYTES PERCENT AUTO 16 % (21-46); MONOCYTES PERCENT AUTO 13 % (4-13); Mean Corpuscular HGB 30.9 pg (26.0-34.0); Mean Corpuscular HGB Conc 33.7 g/dL (31.5-36.5); Mean Corpuscular Volume 92 fL (80-100); Mean Platelet Volume 9.6 fL (9.1-12.4); NEUTROPHILS ABSOLUTE AUTO 4.26 K/mm3 (1.96-9.15); NEUTROPHILS PERCENT AUTO 68 % (41-73); Platelet Count 174 K/mm3 (150-400); RDW Coefficient Variation 13.5 % (11.7-14.2); RDW Standard Deviation 45.7 fL (35.1-46.3); Red Blood Cell Count 4.92 M/mm3 (4.30-5.90); White Blood Cell Count 6.27 K/mm3 (4.00-11.30)
[2022-01-28 16:49] LABS: Alanine Aminotransfer (ALT/SGP 69 U/L (12-78); Albumin, Blood 3.8 g/dL (3.4-5.0); Albumin/Globulin Ratio 1.2 (0.8-1.8); Alk Phos 86 U/L (50-136); Anion Gap 5 mmol/L (6-16); Aspartate Aminotrans (AST/SGOT 35 U/L (12-37); Bilirubin, Total 0.4 mg/dL (0.1-1.0); Blood Urea Nitrogen 40 mg/dL (8-24); Bun/Creatinine Ratio 39.6 (12.0-20.0); CO2, Blood 25 mmol/L (21-32); Calcium, Blood 9.1 mg/dL (8.5-10.1); Chloride, Blood 107 mmol/L (98-108); Creatinine, Blood 1.01 mg/dL (0.60-1.20); Globulin, Blood 3.3 g/dL (2.2-4.0); Glomerular Filtration Rate >60 (60-); Glucose, Blood 110 mg/dL (70-99); Potassium, Blood 4.2 mmol/L (3.5-5.5); Sodium, Blood 137 mmol/L (136-145); Total Protein, Blood 7.1 g/dL (6.4-8.2)
== END 2022-01-28 22:33 | disposition home or self-care (01) ==
LOC: ER 15:51
PROVIDERS: Physician Assistant
DX: J45.901 Unspecified asthma with (acute) exacerbation (principal); Z79.82 Long term (current) use of aspirin; Z79.899 Other long term (current) drug therapy; Z79.01 Long term (current) use of anticoagulants; Z88.5 Allergy status to narcotic agent; Z88.8 Allergy status to other drugs, medicaments and biological substances
CPT/HCPCS: 36415; 71046; 80053; 83880; 84484; 85025; 93005; 93010; 94640; 94664

== ENCOUNTER → 2022-07-07 | Outpatient (CLI) | payer OTHER ==
[2022-07-07 12:29] LABS: BASOPHILS ABSOLUTE AUTO 0.03 K/mm3 (0.00-0.23); BASOPHILS PERCENT AUTO 1 % (0-2); EOSINOPHILS ABSOLUTE AUTO 0.09 K/mm3 (0.00-0.68); EOSINOPHILS PERCENT AUTO 1 % (0-6); Hemoglobin 15.6 g/dL (13.5-17.5); IMMATURE GRAN ABSOLUTE AUTO 0.02 K/mm3 (0.00-0.10); IMMATURE GRAN PERCENT AUTO 0 % (0-1); LYMPHOCYTES ABSOLUTE AUTO 1.02 K/mm3 (0.84-5.20); LYMPHOCYTES PERCENT AUTO 16 % (21-46); MONOCYTES ABSOLUTE AUTO 0.63 K/mm3 (0.16-1.47); MONOCYTES PERCENT AUTO 10 % (4-13); Mean Corpuscular HGB 30.3 pg (26.0-34.0); Mean Corpuscular HGB Conc 33.9 g/dL (31.5-36.5); Mean Corpuscular Volume 89 fL (80-100); Mean Platelet Volume 9.5 fL (9.1-12.4); NEUTROPHILS ABSOLUTE AUTO 4.55 K/mm3 (1.96-9.15); NEUTROPHILS PERCENT AUTO 72 % (41-73); Platelet Count 171 K/mm3 (150-400); RDW Coefficient Variation 13.6 % (11.7-14.2); RDW Standard Deviation 44.5 fL (35.1-46.3); Red Blood Cell Count 5.15 M/mm3 (4.30-5.90); White Blood Cell Count 6.34 K/mm3 (4.00-11.30)
[2022-07-07 12:36] LABS: Calcium, Blood 9.4 mg/dL (8.5-10.1); Creatinine, Blood 1.1 mg/dL (0.60-1.20); Potassium, Blood 4.3 mmol/L (3.5-5.5)
== END | disposition home or self-care (01) ==
LOC: LAB SHORT 12:24 → LAB 12:24
PROVIDERS: Physician Assistant Surgical
DX: R06.09 Other forms of dyspnea (principal); R53.83 Other fatigue
CPT/HCPCS: 80048; 83880; 84484; 85025

== ENCOUNTER 2022-08-18 13:36 | Day surgery (SDC) | payer OTHER ==
[~2022-08-18] VITALS: Ht 188 cm; Wt 91.4 kg
[~2022-08-18 13:36] MED LIST changes: +PANT20
[2022-08-18] MEDS ORDERED: MELO7.5 PO (13:57)
[2022-08-18] MEDS ORDERED: ALPR.25 PO (13:58)
[2022-08-18] MEDS ORDERED: BUSPIRONE HCL30 M1 PO (13:59)
[2022-08-18] MEDS ORDERED: BUPROPION XL150 M1 PO (13:59)
[2022-08-18] MEDS ORDERED: CARV3.125 PO (14:00)
[2022-08-18] MEDS ORDERED: CLOP75 PO (14:01)
[2022-08-18] MEDS ORDERED: PRINIVIL5 M1 PO (14:02)
[2022-08-18] MEDS ORDERED: Robaxin750 MG PO (14:03)
[2022-08-18] MEDS ORDERED: MORP15ER PO (14:03)
[2022-08-18] MEDS ORDERED: NITR.4SL SL (14:04)
[2022-08-18] MEDS ORDERED: OMEP20ER PO (14:05)
[2022-08-18] MEDS ORDERED: ONDA4 PO (14:06)
[2022-08-18] MEDS ORDERED: DEPO-TESTO200 MG/15 IM (14:07)
[2022-08-18] MEDS ORDERED: TOLT2ER PO (14:08)
[2022-08-18] MEDS ORDERED: TRAZ100 PO (14:09)
== END 2022-08-18 15:05 | disposition home or self-care (01) ==
LOC: ORSCSDS 13:36
PROVIDERS: Student in an Organized Health Care Education/Training Program
PROC: 0DB58ZX Excision of Esophagus, Via Natural or Artificial Opening Endoscopic, Diagnostic (ICD-10-PCS; principal; 2022-08-18 14:30)
PROC: 0DB68ZX Excision of Stomach, Via Natural or Artificial Opening Endoscopic, Diagnostic (ICD-10-PCS; principal; 2022-08-18 14:30)
DX: K22.70 Barrett's esophagus without dysplasia (principal); R10.13 Epigastric pain; R19.7 Diarrhea, unspecified; R11.0 Nausea; R15.0 Incomplete defecation; I25.10 Atherosclerotic heart disease of native coronary artery without angina pectoris; F41.8 Other specified anxiety disorders; J45.909 Unspecified asthma, uncomplicated; K21.9 Gastro-esophageal reflux disease without esophagitis; Z86.010 Personal history of colon polyps; E78.5 Hyperlipidemia, unspecified; Z79.01 Long term (current) use of anticoagulants; Z79.82 Long term (current) use of aspirin; Z79.899 Other long term (current) drug therapy
CPT/HCPCS: 88305; 88342; J0330; J0461; J2405; J2704; J7120; Q9968

== ENCOUNTER 2022-09-01 14:18 | Emergency (ER) | payer OTHER ==
[~2022-09-01] VITALS: Ht 188 cm; Wt 91.6 kg
[~2022-09-01 14:18] MED LIST changes: +BUPROPION XL150 M1 PO; +BUSPIRONE HCL30 M1 PO; +DEPO-TESTO200 MG/15 IM; +MELO7.5 PO; +ONDA4 PO; +PRINIVIL5 M1 PO; +TOLT2ER PO
[2022-09-01] MEDS ORDERED: HYDHCL25 PO (15:57)
[2022-09-02] MEDS ORDERED: ALPRAZOLAM2 M1 PO ×2 (15:16→15:17)
== END 2022-09-01 16:33 | disposition home or self-care (01) ==
LOC: ER 14:18
DX: F41.9 Anxiety disorder, unspecified (principal); R45.1 Restlessness and agitation; T38.0X5A Adverse effect of glucocorticoids and synthetic analogues, initial encounter; J45.909 Unspecified asthma, uncomplicated; I25.2 Old myocardial infarction; Z88.8 Allergy status to other drugs, medicaments and biological substances; Z88.5 Allergy status to narcotic agent; Z79.899 Other long term (current) drug therapy; Z79.02 Long term (current) use of antithrombotics/antiplatelets
CPT/HCPCS: 82947; 93005; 93010; A9270

== ENCOUNTER 2022-09-02 14:58 | Emergency (ER) | payer OTHER ==
[~2022-09-02] VITALS: Ht 188 cm; Wt 91.6 kg
[2022-09-02] MEDS ORDERED: ALPRAZOLAM2 M1 PO ×2 (15:16→15:17)
== END 2022-09-02 15:20 | disposition home or self-care (01) ==
LOC: ER 14:58
DX: F41.9 Anxiety disorder, unspecified (principal); J45.909 Unspecified asthma, uncomplicated; Z88.5 Allergy status to narcotic agent; Z88.8 Allergy status to other drugs, medicaments and biological substances; Z79.899 Other long term (current) drug therapy
CPT/HCPCS: 99282

== ENCOUNTER 2022-09-05 00:20 | Emergency (ER) | payer OTHER ==
[~2022-09-05] VITALS: Ht 188 cm; Wt 91.6 kg
[~2022-09-05 00:20] MED LIST changes: +ALPRAZOLAM2 M1 PO
[2022-09-05] MEDS ORDERED: PANT20 PO (00:54)
[2022-09-05 00:59] LABS: BASOPHILS ABSOLUTE AUTO 0.04 K/mm3 (0.00-0.23); BASOPHILS PERCENT AUTO 1 % (0-2); EOSINOPHILS ABSOLUTE AUTO 0.13 K/mm3 (0.00-0.68); EOSINOPHILS PERCENT AUTO 2 % (0-6); Hematocrit 45.3 % (37.0-53.0); Hemoglobin 15.7 g/dL (13.5-17.5); IMMATURE GRAN ABSOLUTE AUTO 0.05 K/mm3 (0.00-0.10); IMMATURE GRAN PERCENT AUTO 1 % (0-1); LYMPHOCYTES ABSOLUTE AUTO 1.34 K/mm3 (0.84-5.20); LYMPHOCYTES PERCENT AUTO 17 % (21-46); MONOCYTES ABSOLUTE AUTO 0.65 K/mm3 (0.16-1.47); MONOCYTES PERCENT AUTO 8 % (4-13); Mean Corpuscular HGB 30.5 pg (26.0-34.0); Mean Corpuscular HGB Conc 34.7 g/dL (31.5-36.5); Mean Corpuscular Volume 88 fL (80-100); Mean Platelet Volume 9.5 fL (9.1-12.4); NEUTROPHILS ABSOLUTE AUTO 5.73 K/mm3 (1.96-9.15); NEUTROPHILS PERCENT AUTO 72 % (41-73); Platelet Count 190 K/mm3 (150-400); RDW Coefficient Variation 13.2 % (11.7-14.2); RDW Standard Deviation 43.1 fL (35.1-46.3); Red Blood Cell Count 5.15 M/mm3 (4.30-5.90); White Blood Cell Count 7.94 K/mm3 (4.00-11.30)
[2022-09-05 01:18] LABS: Albumin, Blood 3.8 g/dL (3.4-5.0); Albumin/Globulin Ratio 1.2 (0.8-1.8); Bilirubin, Total 0.5 mg/dL (0.1-1.0); Bun/Creatinine Ratio 29.1 (12.0-20.0); Calcium, Blood 9.5 mg/dL (8.5-10.1); Creatinine, Blood 0.96 mg/dL (0.60-1.20); Globulin, Blood 3.1 g/dL (2.2-4.0); Potassium, Blood 4.2 mmol/L (3.5-5.5); Total Protein, Blood 6.9 g/dL (6.4-8.2)
== END 2022-09-05 05:05 | disposition home or self-care (01) ==
LOC: ER 00:20
PROVIDERS: Emergency Medicine
DX: S60.222A Contusion of left hand, initial encounter (principal); S09.90XA Unspecified injury of head, initial encounter; I25.2 Old myocardial infarction; W18.30XA Fall on same level, unspecified, initial encounter; Z88.8 Allergy status to other drugs, medicaments and biological substances; Z79.899 Other long term (current) drug therapy
CPT/HCPCS: 36415; 70450; 73080; 73130; 80053; 85025; 93005; 93010

== ENCOUNTER → 2022-12-29 | Outpatient (CLI) | payer OTHER ==
[~2022-12-29] MED LIST changes: +PANT20 PO
== END ==
LOC: LAB 16:56 → LAB SHORT 16:56
DX: M54.9 Dorsalgia, unspecified (principal); R30.0 Dysuria
CPT/HCPCS: 87086

== ENCOUNTER 2023-02-06 15:11 | Emergency (ER) | payer OTHER ==
[~2023-02-06] VITALS: Ht 188 cm; Wt 90.7 kg
[2023-02-06 15:46] LABS: BASOPHILS ABSOLUTE AUTO 0.04 K/mm3 (0.00-0.23); BASOPHILS PERCENT AUTO 1 % (0-2); EOSINOPHILS ABSOLUTE AUTO 0.15 K/mm3 (0.00-0.68); EOSINOPHILS PERCENT AUTO 2 % (0-6); Hematocrit 45.3 % (37.0-53.0); Hemoglobin 15.2 g/dL (13.5-17.5); IMMATURE GRAN ABSOLUTE AUTO 0.03 K/mm3 (0.00-0.10); IMMATURE GRAN PERCENT AUTO 0 % (0-1); LYMPHOCYTES ABSOLUTE AUTO 1.11 K/mm3 (0.84-5.20); LYMPHOCYTES PERCENT AUTO 15 % (21-46); MONOCYTES ABSOLUTE AUTO 0.68 K/mm3 (0.16-1.47); MONOCYTES PERCENT AUTO 10 % (4-13); Mean Corpuscular HGB Conc 33.6 g/dL (31.5-36.5); Mean Corpuscular Volume 90 fL (80-100); Mean Platelet Volume 9.4 fL (9.1-12.4); NEUTROPHILS ABSOLUTE AUTO 5.18 K/mm3 (1.96-9.15); NEUTROPHILS PERCENT AUTO 72 % (41-73); NRBC ABSOLUTE 0.02 K/mm3 (0.00-0.02); NRBC Auto 0.3 /100 WBC (0.0-0.2); Platelet Count 174 K/mm3 (150-400); RDW Coefficient Variation 13.7 % (11.7-14.2); RDW Standard Deviation 44.8 fL (35.1-46.3); Red Blood Cell Count 5.06 M/mm3 (4.30-5.90); White Blood Cell Count 7.19 K/mm3 (4.00-11.30)
[2023-02-06 16:06] LABS: Albumin, Blood 3.9 g/dL (3.4-5.0); Albumin/Globulin Ratio 1.3 (0.8-1.8); Bilirubin, Total 0.8 mg/dL (0.1-1.0); Bun/Creatinine Ratio 26.4 (12.0-20.0); Calcium, Blood 9.2 mg/dL (8.5-10.1); Creatinine, Blood 1.06 mg/dL (0.60-1.20); Globulin, Blood 3.1 g/dL (2.2-4.0); Potassium, Blood 4.7 mmol/L (3.5-5.5)
[2023-02-06 20:00] VITALS: BP 118/79
== END 2023-02-06 20:21 | disposition home or self-care (01) ==
LOC: ER 15:11
PROVIDERS: Physician Assistant
DX: R00.2 Palpitations (principal); J45.909 Unspecified asthma, uncomplicated; Z88.5 Allergy status to narcotic agent; Z88.8 Allergy status to other drugs, medicaments and biological substances; Z79.899 Other long term (current) drug therapy
CPT/HCPCS: 71046; 80053; 84484; 85025

== ENCOUNTER 2023-05-30 12:59 | Emergency (ER) | payer OTHER ==
[~2023-05-30] VITALS: Ht 188 cm; Wt 89.4 kg
[2023-05-30 13:47] LABS: BASOPHILS ABSOLUTE AUTO 0.02 K/mm3 (0.00-0.23); BASOPHILS PERCENT AUTO 0 % (0-2); EOSINOPHILS ABSOLUTE AUTO 0.05 K/mm3 (0.00-0.68); EOSINOPHILS PERCENT AUTO 0 % (0-6); Hematocrit 43.6 % (37.0-53.0); IMMATURE GRAN ABSOLUTE AUTO 0.07 K/mm3 (0.00-0.10); IMMATURE GRAN PERCENT AUTO 1 % (0-1); LYMPHOCYTES ABSOLUTE AUTO 0.94 K/mm3 (0.84-5.20); LYMPHOCYTES PERCENT AUTO 6 % (21-46); MONOCYTES ABSOLUTE AUTO 1.52 K/mm3 (0.16-1.47); MONOCYTES PERCENT AUTO 10 % (4-13); Mean Corpuscular HGB 29.4 pg (26.0-34.0); Mean Corpuscular HGB Conc 34.4 g/dL (31.5-36.5); Mean Corpuscular Volume 86 fL (80-100); Mean Platelet Volume 9.5 fL (9.1-12.4); NEUTROPHILS ABSOLUTE AUTO 12.12 K/mm3 (1.96-9.15); NEUTROPHILS PERCENT AUTO 82 % (41-73); Platelet Count 215 K/mm3 (150-400); RDW Standard Deviation 43.3 fL (35.1-46.3); White Blood Cell Count 14.72 K/mm3 (4.00-11.30)
[2023-05-30 14:21] LABS: Albumin, Blood 3.9 g/dL (3.4-5.0); Albumin/Globulin Ratio 1.2 (0.8-1.8); Bilirubin, Total 1.1 mg/dL (0.1-1.0); Bun/Creatinine Ratio 29.9 (12.0-20.0); Calcium, Blood 9.2 mg/dL (8.5-10.1); Creatinine, Blood 1.07 mg/dL (0.60-1.20); Globulin, Blood 3.3 g/dL (2.2-4.0); Total Protein, Blood 7.2 g/dL (6.4-8.2)
[2023-05-30 14:41] LABS: Base Excess Venous -5.7 mmol/L; Bicarbonate Venous 21.3 mmol/L (24.0-30.0); PCO2 Venous 25.2 mmHg (38-42); pH Blood Venous 7.46 (7.34-7.37)
[2023-05-30 16:30] VITALS: BP 127/80
[2023-05-30] MEDS ORDERED: DOXY100 PO (16:31)
[2023-05-30] MEDS ORDERED: DEXA4 PO (16:31)
[2023-05-30] MEDS ORDERED: AMOCLA875 PO (16:31)
== END 2023-05-30 16:49 | disposition home or self-care (01) ==
LOC: ER 12:59
PROVIDERS: Student in an Organized Health Care Education/Training Program
DX: J45.901 Unspecified asthma with (acute) exacerbation (principal); J18.9 Pneumonia, unspecified organism; I25.2 Old myocardial infarction; F32.A Depression, unspecified; Z79.899 Other long term (current) drug therapy
CPT/HCPCS: 36415; 71046; 80053; 82803; 83605; 85025; 93005; 93010; 94644; 94664; 96374; 96375; 99285-25; A9270; J0696; J1100

== ENCOUNTER 2024-04-26 17:26 | Emergency (ER) | payer OTHER ==
[~2024-04-26] VITALS: Ht 188 cm; Wt 89.4 kg
[~2024-04-26 17:26] MED LIST changes: +AMOCLA875 PO; +DEXA4 PO; +DOXY100 PO
[2024-04-26] MEDS ORDERED: Ondansetron HCl 2 MG / ML 2ML Vial IV ONE (17:45)
[2024-04-26 18:12] LABS: BASOPHILS ABSOLUTE AUTO 0.03 K/mm3 (0.00-0.23); BASOPHILS PERCENT AUTO 0 % (0-2); EOSINOPHILS ABSOLUTE AUTO 0.27 K/mm3 (0.00-0.68); EOSINOPHILS PERCENT AUTO 4 % (0-6); Hematocrit 42.9 % (37.0-53.0); Hemoglobin 14.1 g/dL (13.5-17.5); IMMATURE GRAN ABSOLUTE AUTO 0.03 K/mm3 (0.00-0.10); IMMATURE GRAN PERCENT AUTO 0 % (0-1); LYMPHOCYTES ABSOLUTE AUTO 1.14 K/mm3 (0.84-5.20); LYMPHOCYTES PERCENT AUTO 17 % (21-46); MONOCYTES ABSOLUTE AUTO 0.65 K/mm3 (0.16-1.47); MONOCYTES PERCENT AUTO 10 % (4-13); Mean Corpuscular HGB 28.8 pg (26.0-34.0); Mean Corpuscular HGB Conc 32.9 g/dL (31.5-36.5); Mean Corpuscular Volume 88 fL (80-100); Mean Platelet Volume 9.7 fL (9.1-12.4); NEUTROPHILS ABSOLUTE AUTO 4.59 K/mm3 (1.96-9.15); NEUTROPHILS PERCENT AUTO 69 % (41-73); Platelet Count 188 K/mm3 (150-400); RDW Coefficient Variation 15.8 % (11.7-14.2); RDW Standard Deviation 50.4 fL (35.1-46.3); Red Blood Cell Count 4.89 M/mm3 (4.30-5.90); White Blood Cell Count 6.71 K/mm3 (4.00-11.30)
[2024-04-26 18:23] LABS: Albumin, Blood 3.9 g/dL (3.4-5.0); Albumin/Globulin Ratio 1.1 (0.8-1.8); Bilirubin, Total 0.3 mg/dL (0.1-1.0); Bun/Creatinine Ratio 28.5 (12.0-20.0); Creatinine, Blood 0.88 mg/dL (0.60-1.20); Globulin, Blood 3.5 g/dL (2.2-4.0); Magnesium, Blood 2.5 mg/dL (1.6-2.4); Potassium, Blood 4.4 mmol/L (3.5-5.5); Total Protein, Blood 7.4 g/dL (6.4-8.2)
[2024-04-26] MEDS ORDERED: Diazepam 5 MG / ML 2ML SYR IV ONE (19:55)
[2024-04-26] MEDS ORDERED: Prochlorperazine Edisylate 10 mg Vial IV ONE (19:55)
[2024-04-26] MEDS ORDERED: PROM12.5S PR (20:04)
[2024-04-26] MEDS ORDERED: Robaxin750 MG (20:07)
[2024-04-26] MEDS ORDERED: CLIN1TS (20:09)
[2024-04-26] MEDS ORDERED: ADVAIR HFA 230-28 GM INH (20:10)
[2024-04-26] MEDS ORDERED: MONT10T PO (20:10)
[2024-04-26] MEDS ORDERED: ALBU2.5V5 INH (20:12)
[2024-04-26] MEDS ORDERED: ALFUZOSIN HCL10 MG PO (20:13)
[2024-04-26] MEDS ORDERED: PRAV20 PO (20:14)
[2024-04-26] MEDS ORDERED: MECL25 PO (20:16)
[2024-04-26] MEDS ORDERED: ASPI81CH PO (20:18)
[2024-04-26] MEDS ORDERED: TADALAFIL5 M1 PO (20:21)
[2024-04-26] MEDS ORDERED: EZET10 PO (20:22)
[2024-04-26] MEDS ORDERED: VALIUM PO (21:36)
[2024-04-26] MEDS ORDERED: PROM25 PO (21:36)
[2024-04-26 22:06] VITALS: BP 124/91
== END 2024-04-26 22:10 | disposition home or self-care (01) ==
LOC: ER 17:26
PROVIDERS: Physician Assistant
DX: H81.09 Meniere's disease, unspecified ear (principal); J45.909 Unspecified asthma, uncomplicated; Z79.899 Other long term (current) drug therapy; Z88.8 Allergy status to other drugs, medicaments and biological substances; Z88.5 Allergy status to narcotic agent
CPT/HCPCS: 80053; 83735; 85025; 93005; 93010; 96374; 96375; 99284-25; J0780; J3360

== ENCOUNTER 2024-06-20 11:53 | Observation (INO) | payer OTHER ==
[~2024-06-20] VITALS: Ht 188 cm; Wt 90.7 kg
[~2024-06-20 11:53] MED LIST changes: +ADVAIR HFA 230-28 GM INH; +ALBU2.5V5 INH; +ALFUZOSIN HCL10 MG PO; +ASPI81CH PO; +CLIN1TS; +Carvedilol12.5 MG PO; +EZET10 PO; -MELO7.5 PO; +MOBIC15 MG PO; +PRAV20 PO; +PROM12.5S PR; +Robaxin750 MG; +TADALAFIL5 M1 PO; +VALIUM PO
[2024-06-20 12:38] LABS: BASOPHILS ABSOLUTE AUTO 0.03 K/mm3 (0.00-0.23); BASOPHILS PERCENT AUTO 0 % (0-2); EOSINOPHILS ABSOLUTE AUTO 0.02 K/mm3 (0.00-0.68); EOSINOPHILS PERCENT AUTO 0 % (0-6); Hematocrit 38.1 % (37.0-53.0); Hemoglobin 12.7 g/dL (13.5-17.5); IMMATURE GRAN ABSOLUTE AUTO 0.04 K/mm3 (0.00-0.10); IMMATURE GRAN PERCENT AUTO 0 % (0-1); LYMPHOCYTES ABSOLUTE AUTO 0.38 K/mm3 (0.84-5.20); LYMPHOCYTES PERCENT AUTO 4 % (21-46); MONOCYTES ABSOLUTE AUTO 0.66 K/mm3 (0.16-1.47); MONOCYTES PERCENT AUTO 7 % (4-13); Mean Corpuscular HGB 28.9 pg (26.0-34.0); Mean Corpuscular HGB Conc 33.3 g/dL (31.5-36.5); Mean Corpuscular Volume 87 fL (80-100); Mean Platelet Volume 9.4 fL (9.1-12.4); NEUTROPHILS ABSOLUTE AUTO 8.68 K/mm3 (1.96-9.15); NEUTROPHILS PERCENT AUTO 89 % (41-73); Platelet Count 172 K/mm3 (150-400); RDW Coefficient Variation 14.7 % (11.7-14.2); RDW Standard Deviation 47.4 fL (35.1-46.3); Red Blood Cell Count 4.39 M/mm3 (4.30-5.90); White Blood Cell Count 9.81 K/mm3 (4.00-11.30)
[2024-06-20] MEDS ORDERED: ALPR.5 PO (13:09)
[2024-06-20] MEDS ORDERED: CLOP75 PO (13:13)
[2024-06-20] MEDS ORDERED: ALBU90OI INH (13:13)
[2024-06-20] MEDS ORDERED: DEPO-TESTO200 MG/13 IM (13:15)
[2024-06-20] MEDS ORDERED: EZET10 PO (13:17)
[2024-06-20] MEDS ORDERED: DIAZ2 PO (13:21)
[2024-06-20 13:24] LABS: Albumin, Blood 3.3 g/dL (3.4-5.0); Albumin/Globulin Ratio 1.2 (0.8-1.8); Bilirubin, Total 0.9 mg/dL (0.1-1.0); Bun/Creatinine Ratio 26.5 (12.0-20.0); Calcium, Blood 8.5 mg/dL (8.5-10.1); Creatinine, Blood 0.98 mg/dL (0.60-1.20); Globulin, Blood 2.8 g/dL (2.2-4.0); Potassium, Blood 3.8 mmol/L (3.5-5.5); Total Protein, Blood 6.1 g/dL (6.4-8.2)
[2024-06-20 14:14] LABS: Influenza A, PCR NEGATIVE (NEGATIVE); Influenza B, PCR NEGATIVE (NEGATIVE); Resp Syncytial Virus, PCR NEGATIVE (NEGATIVE); SARS-Cov-2 (COVID-19) PCR, MMC NEGATIVE (NEGATIVE)
[2024-06-20 16:00] LABS: C-REACTIVE PROTEIN, EXT RANGE 1.58 mg/dL (0.000-0.300)
[2024-06-20 16:10] LABS: Phosphorus, Blood 1.6 mg/dL (2.5-4.9); Thyroid Stimulating Hormone 0.212 uIU/mL (0.360-4.800)
[2024-06-20] MEDS ORDERED: FLU VACC TS2024-25(6MOS UP)/PF 45 MCG/0.5 ML SYRINGE IM SCH (16:25)
[2024-06-20 16:28] LABS: Base Excess Venous -1.3 mmol/L; PCO2 Venous 31.7 mmHg (38-42); pH Blood Venous 7.46 (7.34-7.37)
[2024-06-20] MEDS ORDERED: Dexamethasone Sod Phos 10 MG/ML 1ML VIAL IV ONE (16:40)
[2024-06-20] MEDS ORDERED: Potassium Phosphate Dibasic 30 MM in Dextrose 5% 500 ML IV STA (16:48)
[2024-06-20] MEDS ORDERED: Nitroglycerin 0.4 MG SUBL SL PRN (17:30)
[2024-06-20] MEDS ORDERED: Ondansetron HCl 2 MG / ML 2ML Vial IV PRN (17:35)
[2024-06-20] MEDS ORDERED: Meclizine HCl 25 MG Tab PO PRN (17:35)
[2024-06-20] MEDS ORDERED: Meloxicam 7.5 MG Tab PO PRN (17:35)
[2024-06-20] MEDS ORDERED: Methocarbamol 500 MG Tab PO PRN (17:40)
[2024-06-20] MEDS ORDERED: Albuterol 2.5 MG/3 ML VIAL INH PRN (17:40)
[2024-06-20] MEDS ORDERED: Morphine Sulfate 4 MG/1 ML Injection IV PRN (17:45)
[2024-06-20] MEDS ORDERED: ALPRAZolam 0.5 MG Tab PO PRN (17:45)
--- NOTE | 2024-06-20 18:47 | NUR ---
REPORT RECIEVED FROM SHAYAN CARRILLO IN ER. HOWEVER WILL PASS REPORT ONTO NATASHA RN SHIFT CHANGE IS NOW AND PT HAS NOT COME UP FROM ER
[2024-06-20 19:08] VITALS: BP 119/75
[2024-06-20] MEDS ORDERED: Mometasone/Formoterol MDI 100/5 mcg 13 GM INH SCH (19:10)
[2024-06-20 20:52] LABS: Source, Urine Straight Cath
[2024-06-20 20:55] LABS: Appearance, Urine Clear (Clear); Bilirubin, Urine Neg (Neg); Blood, Urine 4+ (Neg); Color, Urine Yellow (P-Yellow); Glucose Qualitative, Urine Neg (Neg); Ketones, Urine 2+ (Neg); Leukocyte Esterase, Urine 2+ (Neg); Nitrite, Urine Pos (Neg); Protein, Urine 1+ (Neg); Specific Gravity, Urine 1.015 (1.003-1.022); Urobilinogen, Urine NORM (Normal)
[2024-06-20] MEDS ORDERED: Carvedilol 6.25 MG Tab PO SCH (21:00)
[2024-06-20] MEDS ORDERED: TraZODone HCl 100 MG Tab PO PRN (21:00)
[2024-06-20] MEDS ORDERED: Fluticasone 0.05% Nasal Spray SCH (21:00)
[2024-06-20] MEDS ORDERED: BusPIRone HCl 10 MG Tab PO SCH (21:00)
[2024-06-20] MEDS ORDERED: buPROPion HCL 150 MG TAB.SR.12H PO SCH (21:00)
[2024-06-20 21:04] LABS: Bacteria Many /hpf; Squamous Epithelial Cells Few /hpf (Few)
[2024-06-20 21:11] LABS: U Amphetamine Screen Not Detected; U Barbituate Screen Not Detected; U Benzodiazapine Screen Not Detected; U Buprenorphine Screen Not Detected; U Cannabinoids Screen Not Detected; U Cocaine Screen Not Detected; U Methadone Screen Not Detected; U Methamphetamine Screen Not Detected; U Opiates Screen DETECTED; U Oxycodone Screen Not Detected; U Phencyclidine Screen Not Detected
[2024-06-21] MEDS ORDERED: FentaNYL Citrate 50 MCG/ML 2 ML Injection IV PRN (00:10)
[2024-06-21 03:02] VITALS: BP 101/62
--- NOTE | 2024-06-21 03:41 | NUR ---
SHIFT SUMMARY ADMITTED THIS SHIFT FOR PARALYSIS. FULL CODE. WE ARE MONITORING LABS. WHEN HE WAS ADMITTED AT THE BEGINNING HE ONLY HAD SLIGHT MOVEMENT OF HIS HANDS AND TOES. NOW, TOWARDS END OF SHIFT, I SEE DRAMATIC IMPROVEMENT IN HIS ABILITY TO MOVE HIS BUE AND BLE. I WITNESSED HIM REACH UP TO SCRATCH HIS NOSE AND HE ASSISTED US WHEN WE REPOSITIONED HIM IN THE BED. THE POTASSIUM PHOSPHATE IV IS NEARLY COMPLETE. HE IS NPO, THERE WERE CONCERNS IN THE ER OF DYSPHAGIA HE CHOKED ON A TINY AMOUNT OF ORAL FLUID THERE. HORN IN PLACE FOR RETENTION. AFEBRILE FOR US AT 98.7 DEGREES. HE IS ON BEDREST. HE IS A&O X4. ON RA.
[2024-06-21 07:11] VITALS: BP 114/76
[2024-06-21 08:52] LABS: Calcium, Blood 8.4 mg/dL (8.5-10.1); Creatinine, Blood 0.94 mg/dL (0.60-1.20); Phosphorus, Blood 2.2 mg/dL (2.5-4.9); Potassium, Blood 4.1 mmol/L (3.5-5.5)
[2024-06-21] MEDS ORDERED: Pantoprazole Sodium 40 MG Tab PO SCH (09:00)
[2024-06-21] MEDS ORDERED: Aspirin 81 MG Chew PO SCH (09:00)
[2024-06-21] MEDS ORDERED: tadalafiL 5 MG Tab PO SCH ×2 (09:00→22:35)
[2024-06-21] MEDS ORDERED: Enoxaparin 40 MG/0.4 ML SYR SC SCH (09:00)
[2024-06-21] MEDS ORDERED: Ezetimibe 10 MG Tab PO SCH (09:00)
[2024-06-21] MEDS ORDERED: Montelukast Sodium 10 MG Tab PO SCH (09:00)
[2024-06-21] MEDS ORDERED: Lisinopril 5 MG Tab PO SCH (09:00)
[2024-06-21] MEDS ORDERED: Clopidogrel Bisulfate 75 MG Tab PO SCH (09:00)
--- NOTE | 2024-06-21 09:53 | NUR ---
"Spiritual Care Visit | Pt. Request Pt. is sitting up in a chair when he welcomes my visit. Pt. is pleasant and made a verbal inquiry about the spiritual care coverage at this hospital. The Pt. verbalized that he practices an [employer] cole. Pt. displays evidence of sincerity as he inquires about on-call coverage for last rites. Listenwith interest, empathy and appropriate pastoral support. Prayed with Pt. pt. verbalized gratitude for the spiritual care visit."
[2024-06-21] MEDS ORDERED: Sodium Phosphate 20 MM in Dextrose 5% 500 ML IV STA (10:38)
[2024-06-21] MEDS ORDERED: Peg 400/Hypromellose/Glycerin 15 DROP/ML BTL BOTHEYES PRN (10:45)
[2024-06-21] MEDS ORDERED: NS 250 ML IV PRN (11:40)
[2024-06-21 15:42] VITALS: BP 122/77
--- NOTE | 2024-06-21 18:11 | NUR ---
SHIFT SUMMARY: PT A/O X4. PLEASANT AND COOPERATIVE WITH CARE. PT ABLE TO MOVE ALL EXTREMETIES EQUALLY THIS SHIFT. BEDSIDE SWALLOW EVAL COMPLETED. ORDER PLACED FOR REGULAR DIET. PT HAS SHOWN NO SIGNS OF SWALLOWING ISSUES THIS SHIFT. PT BROUGHT IN STENT PLACEMENT CARDS; FAXED TO MRI. MRI(S) COMPLETED THIS AFTERNOON. 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 SODIUM PHOSPHATE INFUSING PER EMAR. HORN REMOVED THIS AM PER PT REQUEST. PT HAS SINCE VOIDED POST REMOVAL. PHYSICAL THERAPY EVALUATION COMPLETED THIS SHIFT. PT SB ASSIST TO RESTROOM. CALL LIGHT IN REACH. BED IN LOWEST POSITION.
[2024-06-21] MEDS ORDERED: Testosterone Cypionate 200 MG / ML Vial IM SCH (19:00)
[2024-06-21 19:23] VITALS: BP 124/68
[2024-06-21] MEDS ORDERED: IPRATROPIUM BRO15 ML (21:47)
[2024-06-21] MEDS ORDERED: COLACE100 MG PO (21:48)
[2024-06-21] MEDS ORDERED: [UNRECOGNIZED DRUG - CODE] PO (21:52)
[2024-06-22 02:09] VITALS: BP 118/72
[2024-06-22] MEDS ORDERED: Loperamide HCl 2 MG Cap PO PRN (02:20)
[2024-06-22 05:39] LABS: BASOPHILS ABSOLUTE AUTO 0.01 K/mm3 (0.00-0.23); BASOPHILS PERCENT AUTO 0 % (0-2); EOSINOPHILS ABSOLUTE AUTO 0.04 K/mm3 (0.00-0.68); EOSINOPHILS PERCENT AUTO 0 % (0-6); Hematocrit 37.3 % (37.0-53.0); Hemoglobin 12.3 g/dL (13.5-17.5); IMMATURE GRAN ABSOLUTE AUTO 0.08 K/mm3 (0.00-0.10); IMMATURE GRAN PERCENT AUTO 1 % (0-1); LYMPHOCYTES ABSOLUTE AUTO 0.93 K/mm3 (0.84-5.20); LYMPHOCYTES PERCENT AUTO 8 % (21-46); MONOCYTES ABSOLUTE AUTO 1.22 K/mm3 (0.16-1.47); MONOCYTES PERCENT AUTO 10 % (4-13); Mean Corpuscular HGB 28.4 pg (26.0-34.0); Mean Corpuscular Volume 86 fL (80-100); Mean Platelet Volume 9.4 fL (9.1-12.4); NEUTROPHILS ABSOLUTE AUTO 9.97 K/mm3 (1.96-9.15); NEUTROPHILS PERCENT AUTO 81 % (41-73); Platelet Count 177 K/mm3 (150-400); RDW Coefficient Variation 15.2 % (11.7-14.2); RDW Standard Deviation 47.8 fL (35.1-46.3); Red Blood Cell Count 4.33 M/mm3 (4.30-5.90); White Blood Cell Count 12.25 K/mm3 (4.00-11.30)
[2024-06-22 06:06] LABS: Bun/Creatinine Ratio 26.1 (12.0-20.0); Calcium, Blood 8.4 mg/dL (8.5-10.1)
[2024-06-22 07:41] VITALS: BP 116/68
[2024-06-22] MEDS ORDERED: Trimethoprim/Sulfamethoxazole DS Tab PO SCH (08:00)
--- NOTE | 2024-06-22 08:00 | NUR ---
HISTOTECHNICIAN SUMMARY PT A/OX4. HERE FOR SUDDEN ONSET PARALYSIS/WEAKNESS. PT REPORTS TO THIS RN SYMPTOMS 90% RESOLVED. ADMINISTERED PT 2100 MEDS; PT REQUESTED TADALIFIL WHICH HE TAKES FOR URINARY RETENTION. CHARGED CALLED ENVIRONMENTAL MANAGEMENT SPECIALIST/DR RODRIGUEZ; ORDER FOR MED PLACED AND GIVEN. PT REPORTED HE HAS 12X BOWEL MOVEMENTS IN LAST 14 HOURS. PT STATED STOOL WAS LOOSE. CALL TO ENVIRONMENTAL MANAGEMENT SPECIALIST/DR HERNANDEZ; NEW ORDER FOR IMODIUM AND GI PANEL FOR CDIFF T/O. PT'S NEXT BM WAS SMALL AND FORMED; THEN DID NOT HAVE ANOTHER BM THE REMAINDER OF THE NIGHT. ORDER FOR GI PANEL CANCELED IT DID NOT MEET CRITERIA. IMODIUM NOT GIVEN. PT ABLE TO MAKE NEEDS KNOWN. CALL LIGHT ACCESSIBLE.
[2024-06-22] MEDS ORDERED: SULTRIDS PO (09:21)
[2024-06-22] MEDS ORDERED: VISBIOME 112.51 EACH PO (09:22)
== END 2024-06-22 11:54 | disposition home or self-care (01) ==
LOC: ER 11:53 → MEDS 11:54 → ER 16:19 → MEDS 16:19 → ENPENDDIS 06-22 09:33 → MEDS 06-22 11:54
PROVIDERS: Emergency Medicine; Internal Medicine; ADMIT Family Medicine
DX: G83.9 Paralytic syndrome, unspecified (principal); R33.9 Retention of urine, unspecified; F41.9 Anxiety disorder, unspecified; K21.9 Gastro-esophageal reflux disease without esophagitis; J45.909 Unspecified asthma, uncomplicated; I25.2 Old myocardial infarction; Z88.5 Allergy status to narcotic agent; Z88.8 Allergy status to other drugs, medicaments and biological substances; Z79.82 Long term (current) use of aspirin; Z79.02 Long term (current) use of antithrombotics/antiplatelets; Z79.899 Other long term (current) drug therapy; Z79.51 Long term (current) use of inhaled steroids
CPT/HCPCS: 0241U; 36415; 51702; 51798; 70450; 70551; 71045; 72141; 80048; 80053; 81001; 82330; 82803; 83735; 83880; 84100; 84436; 84443; 84481; 84484; 85025; 85651; 86140; 87040; 87077; 87086; 87186; 87207; 93005; 93010; 94640; 94664; 94760; 94762; 96375; 97112; 97116; 97162; 99285-25; A9270; G0378; J1071; J1100; J1650; J3010; J7060

== ENCOUNTER 2024-11-13 17:07 | Emergency (ER) | payer OTHER ==
[~2024-11-13] VITALS: Ht 188 cm; Wt 86.2 kg
[~2024-11-13 17:07] MED LIST changes: +ALBU90OI INH; +ALPR.5 PO; +COLACE100 MG PO; +DEPO-TESTO200 MG/13 IM; +DIAZ2 PO; +IPRATROPIUM BRO15 ML; +SULTRIDS PO; +VISBIOME 112.51 EACH PO; +[UNRECOGNIZED DRUG - CODE] PO
[2024-11-13 18:35] LABS: CORONAVIRUS COVID-19 AG Negative (NEGATIVE); INFLUENZA A AG Negative (NEGATIVE); INFLUENZA B AG Negative (NEGATIVE)
[2024-11-13 18:38] LABS: BASOPHILS ABSOLUTE AUTO 0.03 K/mm3 (0.00-0.23); BASOPHILS PERCENT AUTO 0 % (0-2); EOSINOPHILS ABSOLUTE AUTO 0.17 K/mm3 (0.00-0.68); EOSINOPHILS PERCENT AUTO 2 % (0-6); Hematocrit 41.1 % (37.0-53.0); Hemoglobin 13.3 g/dL (13.5-17.5); IMMATURE GRAN ABSOLUTE AUTO 0.03 K/mm3 (0.00-0.10); IMMATURE GRAN PERCENT AUTO 0 % (0-1); LYMPHOCYTES ABSOLUTE AUTO 1.14 K/mm3 (0.84-5.20); LYMPHOCYTES PERCENT AUTO 14 % (21-46); MONOCYTES ABSOLUTE AUTO 0.75 K/mm3 (0.16-1.47); MONOCYTES PERCENT AUTO 10 % (4-13); Mean Corpuscular HGB 27.4 pg (26.0-34.0); Mean Corpuscular HGB Conc 32.4 g/dL (31.5-36.5); Mean Corpuscular Volume 85 fL (80-100); Mean Platelet Volume 9.9 fL (9.1-12.4); NEUTROPHILS PERCENT AUTO 73 % (41-73); Platelet Count 194 K/mm3 (150-400); RDW Coefficient Variation 15.1 % (11.7-14.2); RDW Standard Deviation 46.7 fL (35.1-46.3); Red Blood Cell Count 4.85 M/mm3 (4.30-5.90); White Blood Cell Count 7.92 K/mm3 (4.00-11.30)
[2024-11-13 19:07] LABS: Albumin, Blood 4.1 g/dL (3.4-5.0); Albumin/Globulin Ratio 1.4 (0.8-1.8); Bilirubin, Total 0.4 mg/dL (0.1-1.0); Bun/Creatinine Ratio 33.7 (12.0-20.0); Calcium, Blood 9.4 mg/dL (8.5-10.1); Creatinine, Blood 0.98 mg/dL (0.60-1.20); Potassium, Blood 4.1 mmol/L (3.5-5.5); Total Protein, Blood 7.1 g/dL (6.4-8.2)
[2024-11-13 19:27] LABS: Bicarbonate Venous 22.4 mmol/L (24.0-30.0); PCO2 Venous 35.5 mmHg (38-42)
[2024-11-13] MEDS ORDERED: Albuterol 2.5 MG/3 ML VIAL INH ONE (20:10)
[2024-11-13] MEDS ORDERED: Acetaminophen 325 MG TABLET PO ONE (21:05)
[2024-11-13 21:45] VITALS: BP 140/94
== END 2024-11-13 21:45 | disposition home or self-care (01) ==
LOC: ER 17:07
PROVIDERS: Student in an Organized Health Care Education/Training Program
DX: R05.1 Acute cough (principal); R06.00 Dyspnea, unspecified; R55 Syncope and collapse; J45.909 Unspecified asthma, uncomplicated; I25.2 Old myocardial infarction; I10 Essential (primary) hypertension; Z88.5 Allergy status to narcotic agent; Z88.8 Allergy status to other drugs, medicaments and biological substances; Z79.1 Long term (current) use of non-steroidal anti-inflammatories (NSAID); Z79.51 Long term (current) use of inhaled steroids; Z79.82 Long term (current) use of aspirin; Z79.01 Long term (current) use of anticoagulants; Z79.899 Other long term (current) drug therapy
CPT/HCPCS: 71046; 80053; 82803; 85025; 87428-QW; 93005; 93010; 94640; 94664; 99284-25; A9270

== ENCOUNTER 2025-04-16 13:56 | Emergency (ER) | payer OTHER ==
[~2025-04-16] VITALS: Ht 188 cm; Wt 97.1 kg
[2025-04-16 14:23] LABS: BASOPHILS ABSOLUTE AUTO 0.04 K/mm3 (0.00-0.23); BASOPHILS PERCENT AUTO 1 % (0-2); EOSINOPHILS ABSOLUTE AUTO 0.14 K/mm3 (0.00-0.68); EOSINOPHILS PERCENT AUTO 2 % (0-6); Hematocrit 40.7 % (37.0-53.0); Hemoglobin 13.1 g/dL (13.5-17.5); IMMATURE GRAN ABSOLUTE AUTO 0.02 K/mm3 (0.00-0.10); IMMATURE GRAN PERCENT AUTO 0 % (0-1); LYMPHOCYTES ABSOLUTE AUTO 1.11 K/mm3 (0.84-5.20); LYMPHOCYTES PERCENT AUTO 18 % (21-46); MONOCYTES ABSOLUTE AUTO 0.72 K/mm3 (0.16-1.47); MONOCYTES PERCENT AUTO 11 % (4-13); Mean Corpuscular HGB Conc 32.2 g/dL (31.5-36.5); Mean Corpuscular Volume 83 fL (80-100); NEUTROPHILS ABSOLUTE AUTO 4.32 K/mm3 (1.96-9.15); NEUTROPHILS PERCENT AUTO 68 % (41-73); NRBC ABSOLUTE 0.00 K/mm3 (0.00-0.02); NRBC Auto 0.0 /100 WBC (0.0-0.2); Platelet Count 207 K/mm3 (150-400); RDW Coefficient Variation 16.4 % (11.7-14.2); RDW Standard Deviation 49.2 fL (35.1-46.3)
[2025-04-16] MEDS ORDERED: Ketorolac Tromethamine 15mg Vial IV ONE (14:45)
[2025-04-16 14:52] LABS: Alanine Aminotransfer (ALT/SGP 38.0 U/L (12-78); Albumin, Blood 4.0 g/dL (3.4-5.0); Albumin/Globulin Ratio 1.3 (0.8-1.8); Anion Gap 9.0 mmol/L (3-11); Aspartate Aminotrans (AST/SGOT 29.0 U/L (12-37); Bilirubin, Total 0.7 mg/dL (0.1-1.0); Blood Urea Nitrogen 26.0 mg/dL (8-24); CO2, Blood 24.0 mmol/L (21-32); Calcium, Blood 8.6 mg/dL (8.5-10.1); Chloride, Blood 108.0 mmol/L (98-108); Creatinine, Blood 1.03 mg/dL (0.60-1.20); Globulin, Blood 3.0 g/dL (2.2-4.0); Glucose, Blood 93.0 mg/dL (70-99); Potassium, Blood 4.5 mmol/L (3.5-5.5); Sodium, Blood 136.0 mmol/L (136-145); Total Protein, Blood 7.0 g/dL (6.4-8.2)
[2025-04-16 17:15] VITALS: BP 146/87
== END 2025-04-16 17:35 | disposition home or self-care (01) ==
LOC: ER 13:56
PROVIDERS: Emergency Medicine
DX: R55 Syncope and collapse (principal); R07.89 Other chest pain; R40.4 Transient alteration of awareness; X30.XXXA Exposure to excessive natural heat, initial encounter; J45.909 Unspecified asthma, uncomplicated; I25.2 Old myocardial infarction; Z88.8 Allergy status to other drugs, medicaments and biological substances; Z88.5 Allergy status to narcotic agent; Z79.82 Long term (current) use of aspirin; Z79.899 Other long term (current) drug therapy
CPT/HCPCS: 71046; 80053; 84484; 85025; 93005; 93010; 96374; 99285-25; J1885

== ENCOUNTER 2025-05-22 14:09 | Emergency (ER) | payer OTHER ==
[~2025-05-22] VITALS: Ht 188 cm; Wt 93.0 kg
[2025-05-22] MEDS ORDERED: Albuterol 2.5 MG/3 ML VIAL INH SCH (14:40)
[2025-05-22 14:51] LABS: BASOPHILS ABSOLUTE AUTO 0.04 K/mm3 (0.00-0.23); BASOPHILS PERCENT AUTO 1 % (0-2); EOSINOPHILS ABSOLUTE AUTO 0.36 K/mm3 (0.00-0.68); EOSINOPHILS PERCENT AUTO 5 % (0-6); Hematocrit 39.5 % (37.0-53.0); Hemoglobin 13.1 g/dL (13.5-17.5); IMMATURE GRAN ABSOLUTE AUTO 0.03 K/mm3 (0.00-0.10); IMMATURE GRAN PERCENT AUTO 0 % (0-1); LYMPHOCYTES ABSOLUTE AUTO 0.62 K/mm3 (0.84-5.20); LYMPHOCYTES PERCENT AUTO 8 % (21-46); MONOCYTES ABSOLUTE AUTO 0.40 K/mm3 (0.16-1.47); MONOCYTES PERCENT AUTO 5 % (4-13); Mean Corpuscular HGB Conc 33.2 g/dL (31.5-36.5); Mean Corpuscular Volume 81 fL (80-100); NEUTROPHILS ABSOLUTE AUTO 5.93 K/mm3 (1.96-9.15); NEUTROPHILS PERCENT AUTO 80 % (41-73); NRBC ABSOLUTE 0.00 K/mm3 (0.00-0.02); NRBC Auto 0.0 /100 WBC (0.0-0.2); Platelet Count 200 K/mm3 (150-400); RDW Coefficient Variation 16.2 % (11.7-14.2); RDW Standard Deviation 48.0 fL (35.1-46.3)
[2025-05-22 15:08] LABS: pH Blood Venous 7.40 (7.34-7.37)
[2025-05-22 15:19] LABS: Alanine Aminotransfer (ALT/SGP 44.0 U/L (12-78); Albumin, Blood 3.8 g/dL (3.4-5.0); Albumin/Globulin Ratio 1.2 (0.8-1.8); Anion Gap 11.0 mmol/L (3-11); Aspartate Aminotrans (AST/SGOT 25.0 U/L (12-37); Bilirubin, Total 0.3 mg/dL (0.1-1.0); Blood Urea Nitrogen 40.0 mg/dL (8-24); CO2, Blood 19.0 mmol/L (21-32); Calcium, Blood 8.9 mg/dL (8.5-10.1); Chloride, Blood 112.0 mmol/L (98-108); Creatinine, Blood 1.09 mg/dL (0.60-1.20); Globulin, Blood 3.3 g/dL (2.2-4.0); Glucose, Blood 143.0 mg/dL (70-99); Potassium, Blood 4.6 mmol/L (3.5-5.5); Sodium, Blood 137.0 mmol/L (136-145); Total Protein, Blood 7.1 g/dL (6.4-8.2)
[2025-05-22] MEDS ORDERED: DECADRON4 M1 PO (16:29)
[2025-05-22] MEDS ORDERED: CLINDAMYCIN PHO40 G1 TOP (16:36)
[2025-05-22] MEDS ORDERED: BUDESONIDE-FO10.2 G2 (16:40)
[2025-05-22] MEDS ORDERED: ONDA4ODT MM (16:40)
[2025-05-22] MEDS ORDERED: TOLTERODINE TART2 M1 PO (16:40)
[2025-05-22 18:00] VITALS: BP 116/80
== END 2025-05-22 18:00 | disposition home or self-care (01) ==
LOC: ER 14:09
PROVIDERS: Student in an Organized Health Care Education/Training Program
DX: J45.901 Unspecified asthma with (acute) exacerbation (principal); I25.2 Old myocardial infarction; Z88.5 Allergy status to narcotic agent; Z88.8 Allergy status to other drugs, medicaments and biological substances; Z79.02 Long term (current) use of antithrombotics/antiplatelets; Z79.1 Long term (current) use of non-steroidal anti-inflammatories (NSAID); Z79.82 Long term (current) use of aspirin; Z79.899 Other long term (current) drug therapy
CPT/HCPCS: 71046; 80053; 82803; 85025; 93005; 93010; 99285-25